=== PATIENT | female | born 1940 | race Caucasian/White ===

== ENCOUNTER 2017-09-30 08:44 | Outpatient (CLI) | payer MEDICARE, MEDICAID ==
[2017-09-30 12:55] LABS: BASOPHILS % (AUTO) 0.2 %; EOSINOPHILS # (AUTO) 0.1 10^3/uL (0.0-0.7); EOSINOPHILS % (AUTO) 2.3 %; HGB - HEMOGLOBIN 13.3 g/dL (12.0-16.0); LYMPHOCYTES # (AUTO) 2.4 10^3/uL (1.5-3.5); LYMPHOCYTES % (AUTO) 43.8 %; MEAN CORPUSCULAR HGB CONC 33.7 g/dL (32.0-36.0); MEAN CORPUSCULAR VOLUME 95.1 fL (81.0-99.0); MEAN PLATELET VOLUME 8.8 fL (7.9-10.8); MONOCYTES # (AUTO) 0.5 10^3/uL (0.0-1.0); MONOCYTES % (AUTO) 8.7 %; NEUTROPHILS # (AUTO) 2.4 10^3/uL (1.5-6.6); PLT - PLATELET COUNT 188 10^3/uL (130-450); RED BLOOD COUNT 4.15 10^6/uL (4.20-5.40); RED CELL DISTRIBUTION WIDTH 13.1 % (12.0-15.0); WHITE BLOOD COUNT 5.4 x10^3/uL (4.8-10.8)
[2017-09-30 13:24] LABS: ALBUMIN 4.4 g/dL (3.2-5.5); ALBUMIN/GLOBULIN RATIO 1.5 (1.0-2.2); ALKALINE PHOSPHATASE 43 IU/L (42-121); ALT ALANINE AMINOTRANSFERASE 29 IU/L (10-60); AST ASPARTATE AMINOTRANSFERASE 28 IU/L (10-42); BILIRUBIN,TOTAL 0.8 mg/dL (0.2-1.0); BUN - BLOOD UREA NITROGEN 16 mg/dL (6-20); CALCIUM 9.4 mg/dL (8.5-10.3); CARBON DIOXIDE - CO2 26 mmol/L (21-32); CHLORIDE 106 mmol/L (101-111); CHOL/HDL RATIO 4.9 (<4.4); CHOLESTEROL 215 mg/dL; GFR - MDRD 54 (>89); GLUCOSE 103 mg/dL (70-100); HDL CHOLESTEROL 44 mg/dL; LDL CHOLESTEROL,CALCULATED 118 mg/dL; LDL/HDL RATIO 2.7 (<4.4); SODIUM 139 mmol/L (135-145); TOTAL PROTEIN 7.4 g/dL (6.7-8.2); VLDL CHOLESTEROL 53 mg/dL
== END 2017-09-30 08:45 | disposition home or self-care (01) ==
LOC: LAB.WCP 08:44
PROVIDERS: ATTEND Family Medicine
DX: I10 Essential (primary) hypertension (principal); Z79.899 Other long term (current) drug therapy
CPT/HCPCS: 36415; 80053; 80061; 83721; 84443; 85025

== ENCOUNTER 2018-06-15 08:10 | Outpatient (CLI) | payer MEDICARE, MEDICAID ==
[2018-06-15 14:33] LABS: BASOPHILS % (AUTO) 0.2 %; EOSINOPHILS # (AUTO) 0.1 10^3/uL (0.0-0.7); EOSINOPHILS % (AUTO) 3.1 %; HGB - HEMOGLOBIN 12.7 g/dL (12.0-16.0); LYMPHOCYTES # (AUTO) 2.4 10^3/uL (1.5-3.5); MEAN CORPUSCULAR HEMOGLOBIN 34.2 pg (27.0-31.0); MEAN CORPUSCULAR HGB CONC 35.4 g/dL (32.0-36.0); MEAN CORPUSCULAR VOLUME 96.6 fL (81.0-99.0); MEAN PLATELET VOLUME 9.3 fL (7.9-10.8); MONOCYTES # (AUTO) 0.3 10^3/uL (0.0-1.0); MONOCYTES % (AUTO) 6.8 %; NEUTROPHILS # (AUTO) 1.7 10^3/uL (1.5-6.6); NEUTROPHILS % (AUTO) 36.9 %; PLT - PLATELET COUNT 168 10^3/uL (130-450); RED CELL DISTRIBUTION WIDTH 13.2 % (12.0-15.0); WHITE BLOOD COUNT 4.6 x10^3/uL (4.8-10.8)
[2018-06-15 15:00] LABS: ALBUMIN 4.3 g/dL (3.2-5.5); ALBUMIN/GLOBULIN RATIO 1.5 (1.0-2.2); ALKALINE PHOSPHATASE 43 IU/L (42-121); ALT ALANINE AMINOTRANSFERASE 24 IU/L (10-60); AST ASPARTATE AMINOTRANSFERASE 28 IU/L (10-42); BUN - BLOOD UREA NITROGEN 11 mg/dL (6-20); CALCIUM 9.4 mg/dL (8.5-10.3); CARBON DIOXIDE - CO2 29 mmol/L (21-32); CHLORIDE 103 mmol/L (101-111); CHOL/HDL RATIO 2.9 (<4.4); CHOLESTEROL 137 mg/dL; GFR - MDRD 54 (>89); GLUCOSE 101 mg/dL (70-100); HDL CHOLESTEROL 48 mg/dL; LDL CHOLESTEROL,CALCULATED 62 mg/dL; LDL/HDL RATIO 1.3 (<4.4); SODIUM 141 mmol/L (135-145); TOTAL PROTEIN 7.2 g/dL (6.7-8.2); VLDL CHOLESTEROL 27 mg/dL
== END 2018-06-15 23:59 | disposition home or self-care (01) ==
LOC: LAB.WCP 08:10
PROVIDERS: ATTEND Nurse Practitioner
DX: E88.81 Metabolic syndrome and other insulin resistance (principal); I10 Essential (primary) hypertension; Z79.899 Other long term (current) drug therapy
CPT/HCPCS: 36415; 80053; 80061; 83721; 85025

== ENCOUNTER 2018-08-25 08:13 | Outpatient (CLI) | payer MEDICARE, MEDICAID ==
[2018-08-25 12:44] LABS: ALBUMIN 4.5 g/dL (3.2-5.5); ALBUMIN/GLOBULIN RATIO 1.6 (1.0-2.2); BILIRUBIN,TOTAL 0.9 mg/dL (0.2-1.0); CALCIUM 9.8 mg/dL (8.5-10.3); TOTAL PROTEIN 7.3 g/dL (6.7-8.2)
== END 2018-08-25 23:59 | disposition home or self-care (01) ==
LOC: LAB.WCP 08:13
PROVIDERS: ATTEND Nurse Practitioner
DX: E88.81 Metabolic syndrome and other insulin resistance (principal)
CPT/HCPCS: 36415; 80053

== ENCOUNTER 2019-04-07 08:00 | Outpatient (CLI) | payer MEDICARE, MEDICAID ==
[2019-04-07 18:51] LABS: BASOPHILS % (AUTO) 0.2 %; EOSINOPHILS # (AUTO) 0.1 10^3/uL (0.0-0.7); EOSINOPHILS % (AUTO) 1.9 %; HGB - HEMOGLOBIN 12.1 g/dL (12.0-16.0); LYMPHOCYTES # (AUTO) 2.4 10^3/uL (1.5-3.5); LYMPHOCYTES % (AUTO) 49.3 %; MEAN CORPUSCULAR HEMOGLOBIN 31.3 pg (27.0-31.0); MEAN CORPUSCULAR HGB CONC 30.9 g/dL (32.0-36.0); MEAN PLATELET VOLUME 11.3 fL (7.9-10.8); MONOCYTES # (AUTO) 0.3 10^3/uL (0.0-1.0); NEUTROPHILS % (AUTO) 41.4 %; PLT - PLATELET COUNT 181 10^3/uL (130-450); RED BLOOD COUNT 3.87 10^6/uL (4.20-5.40); RED CELL DISTRIBUTION WIDTH 12.9 % (12.0-15.0); WHITE BLOOD COUNT 4.8 x10^3/uL (4.8-10.8)
[2019-04-07 19:12] LABS: HB2 TOTAL 12.7 g/dL; HEMOGLOBIN A1C 0.54 g/dL
[2019-04-07 19:18] LABS: ALBUMIN 4.3 g/dL (3.2-5.5); ALBUMIN/GLOBULIN RATIO 1.4 (1.0-2.2); ALKALINE PHOSPHATASE 34 IU/L (42-121); ALT ALANINE AMINOTRANSFERASE 21 IU/L (10-60); AST ASPARTATE AMINOTRANSFERASE 24 IU/L (10-42); BILIRUBIN,TOTAL 1.2 mg/dL (0.2-1.0); BUN - BLOOD UREA NITROGEN 18 mg/dL (6-20); CALCIUM 9.5 mg/dL (8.5-10.3); CARBON DIOXIDE - CO2 29 mmol/L (21-32); CHLORIDE 103 mmol/L (101-111); CHOL/HDL RATIO 5.1 (<4.4); CHOLESTEROL 242 mg/dL; GFR - MDRD 54 (>89); GLUCOSE 92 mg/dL (70-100); HDL CHOLESTEROL 47 mg/dL; LDL CHOLESTEROL,CALCULATED 161 mg/dL; LDL/HDL RATIO 3.4 (<4.4); SODIUM 140 mmol/L (135-145); TOTAL PROTEIN 7.3 g/dL (6.7-8.2); VLDL CHOLESTEROL 34 mg/dL
== END 2019-04-07 23:59 | disposition home or self-care (01) ==
LOC: LAB.WCP 08:00
PROVIDERS: ATTEND Family Medicine
DX: E87.6 Hypokalemia (principal); E78.00 Pure hypercholesterolemia, unspecified; E88.81 Metabolic syndrome and other insulin resistance; I10 Essential (primary) hypertension; Z79.899 Other long term (current) drug therapy
CPT/HCPCS: 36415; 80053; 80061; 83036; 83721; 85025

== ENCOUNTER 2019-06-14 10:15 | Outpatient (CLI) | payer MEDICARE, MEDICAID ==
[2019-06-14 12:37] LABS: BILIRUBIN,URINE NEGATIVE (NEGATIVE); GLUCOSE, URINE (UA) NEGATIVE (NEGATIVE); KETONES,URINE (UA) NEGATIVE (NEGATIVE); LEUKOCYTE ESTERASE, URINE NEGATIVE (NEGATIVE); NITRITE,URINE NEGATIVE (NEGATIVE); OCCULT BLOOD,URINE SMALL (NEGATIVE); PH,URINE 6.5 PH (5.0-7.5); PROTEIN,URINE 30 mg/dL (NEGATIVE); UROBILINOGEN,URINE 0.2 (NORMAL) E.U./dL (NORMAL)
[2019-06-14 13:07] LABS: CLARITY,URINE CLEAR (CLEAR)
[2019-06-14 13:08] LABS: BACTERIA,URINE Rare /HPF (None Seen); RBC,URINE 0-5 /HPF (0-5); SQUAMOUS EPITHELIAL CELL,UR RARE Squamous (<= Few); WBC CLUMPS,URINE PRESENT
[2019-06-14 13:09] LABS: MUCUS,URINE Few Strands
== END 2019-06-14 23:59 | disposition home or self-care (01) ==
LOC: LAB.WCP 10:15
PROVIDERS: ATTEND Nurse Practitioner Family
DX: R80.9 Proteinuria, unspecified (principal); R31.9 Hematuria, unspecified
CPT/HCPCS: 81001; 81003; 87086

== ENCOUNTER 2019-09-02 09:28 | Outpatient (CLI) | payer MEDICARE, MEDICAID ==
[2019-09-02 12:47] LABS: BILIRUBIN,URINE NEGATIVE (NEGATIVE); GLUCOSE, URINE (UA) NEGATIVE (NEGATIVE); KETONES,URINE (UA) NEGATIVE (NEGATIVE); LEUKOCYTE ESTERASE, URINE NEGATIVE (NEGATIVE); NITRITE,URINE NEGATIVE (NEGATIVE); OCCULT BLOOD,URINE SMALL (NEGATIVE); PROTEIN,URINE NEGATIVE (NEGATIVE); UROBILINOGEN,URINE 0.2 (NORMAL) E.U./dL (NORMAL)
[2019-09-02 12:48] LABS: BASOPHILS % (AUTO) 0.4 %; EOSINOPHILS # (AUTO) 0.1 10^3/uL (0.0-0.7); EOSINOPHILS % (AUTO) 1.8 %; HGB - HEMOGLOBIN 11.5 g/dL (12.0-16.0); LYMPHOCYTES # (AUTO) 2.3 10^3/uL (1.5-3.5); MEAN CORPUSCULAR HEMOGLOBIN 32.2 pg (27.0-31.0); MEAN CORPUSCULAR HGB CONC 32.5 g/dL (32.0-36.0); MEAN CORPUSCULAR VOLUME 99.2 fL (81.0-99.0); MEAN PLATELET VOLUME 11.2 fL (7.9-10.8); MONOCYTES # (AUTO) 0.4 10^3/uL (0.0-1.0); MONOCYTES % (AUTO) 8.1 %; NEUTROPHILS # (AUTO) 2.1 10^3/uL (1.5-6.6); NEUTROPHILS % (AUTO) 43.5 %; PLT - PLATELET COUNT 157 10^3/uL (130-450); RED BLOOD COUNT 3.57 10^6/uL (4.20-5.40); RED CELL DISTRIBUTION WIDTH 12.5 % (12.0-15.0); WHITE BLOOD COUNT 4.9 x10^3/uL (4.8-10.8)
[2019-09-02 12:49] LABS: CLARITY,URINE CLEAR (CLEAR)
[2019-09-02 12:59] LABS: HB2 TOTAL 11.4 g/dL; HEMOGLOBIN A1C 0.52 g/dL; HEMOGLOBIN A1C % 6.3 % (4.6-6.2)
[2019-09-02 13:05] LABS: BACTERIA,URINE Rare /HPF (None Seen); RBC,URINE 0-5 /HPF (0-5); SQUAMOUS EPITHELIAL CELL,UR RARE Squamous (<= Few)
[2019-09-02 13:06] LABS: ALBUMIN 4.3 g/dL (3.2-5.5); ALBUMIN/GLOBULIN RATIO 1.5 (1.0-2.2); ALKALINE PHOSPHATASE 41 IU/L (42-121); ALT ALANINE AMINOTRANSFERASE 34 IU/L (10-60); AST ASPARTATE AMINOTRANSFERASE 29 IU/L (10-42); BUN - BLOOD UREA NITROGEN 22 mg/dL (6-20); CALCIUM 8.9 mg/dL (8.5-10.3); CARBON DIOXIDE - CO2 26 mmol/L (21-32); CHLORIDE 101 mmol/L (101-111); CHOL/HDL RATIO 2.8 (<4.4); CHOLESTEROL 124 mg/dL; CREATININE 1.1 mg/dL (0.4-1.0); GFR - MDRD 48 (>89); GLUCOSE 88 mg/dL (70-100); HDL CHOLESTEROL 44 mg/dL; LDL CHOLESTEROL,CALCULATED 47 mg/dL; LDL/HDL RATIO 1.1 (<4.4); SODIUM 136 mmol/L (135-145); TOTAL PROTEIN 7.1 g/dL (6.7-8.2); VLDL CHOLESTEROL 33 mg/dL
== END 2019-09-02 23:59 | disposition home or self-care (01) ==
LOC: LAB.WCP 09:28
PROVIDERS: ATTEND Family Medicine
DX: N18.3 Chronic kidney disease, stage 3 (moderate) (principal); E78.00 Pure hypercholesterolemia, unspecified; R31.9 Hematuria, unspecified; E88.81 Metabolic syndrome and other insulin resistance
CPT/HCPCS: 36415; 80053; 80061; 81001; 83036; 83721; 85025; 87086

== ENCOUNTER 2020-08-27 07:00 | Outpatient (CLI) | payer MEDICARE, MEDICAID ==
--- NOTE | 2020-08-28 12:45 | XRAY Report ---
PROCEDURE: Tib/Fib LT INDICATIONS: L LOWER LEG PX TECHNIQUE: 2 views of the tibia and fibula were acquired. COMPARISON: None FINDINGS: Bones: No fractures or dislocations. No suspicious bony lesions. Soft tissues: No suspicious soft tissue calcifications or masses. IMPRESSION: No visualized acute fracture or dislocation. However, occult injury cannot be excluded. Recommend silvia rt interval imaging follow-up in 7-10 days as clinically indicated for additional evaluation. Reviewed by: Maria L Martin MD on 08/28/2020 12:44 PM PST Approved by: Maria L Martin MD on 08/28/2020 12:44 PM PST Station ID: [id number]
== END 2020-08-27 23:59 | disposition home or self-care (01) ==
LOC: DI.N 07:00
PROVIDERS: ATTEND Nurse Practitioner
DX: M79.662 Pain in left lower leg (principal)

== ENCOUNTER 2020-11-01 16:59 | Outpatient (CLI) | payer MEDICARE, MEDICAID ==
[2020-11-01 20:49] LABS: BASOPHILS % (AUTO) 0.4 %; EOSINOPHILS # (AUTO) 0.2 10^3/uL (0.0-0.7); EOSINOPHILS % (AUTO) 3.1 %; HCT - HEMATOCRIT 29.6 % (37.0-47.0); HGB - HEMOGLOBIN 9.8 g/dL (12.0-16.0); LYMPHOCYTES # (AUTO) 1.9 10^3/uL (1.5-3.5); MEAN CORPUSCULAR HGB CONC 33.1 g/dL (32.0-36.0); MEAN CORPUSCULAR VOLUME 99.7 fL (81.0-99.0); MEAN PLATELET VOLUME 11.3 fL (7.9-10.8); MONOCYTES # (AUTO) 0.4 10^3/uL (0.0-1.0); MONOCYTES % (AUTO) 7.2 %; NEUTROPHILS # (AUTO) 2.4 10^3/uL (1.5-6.6); NEUTROPHILS % (AUTO) 49.1 %; PLT - PLATELET COUNT 188 10^3/uL (130-450); RED BLOOD COUNT 2.97 10^6/uL (4.20-5.40); RED CELL DISTRIBUTION WIDTH 12.6 % (12.0-15.0); WHITE BLOOD COUNT 4.8 x10^3/uL (4.8-10.8)
[2020-11-01 20:59] LABS: ESTIMATED AVERAGE GLUCOSE 120 mg/dL (70-100); HEMOGLOBIN A1c% 5.8 % (4.27-6.07)
[2020-11-01 21:01] LABS: ALBUMIN 4.5 g/dL (3.2-5.5); ALBUMIN/GLOBULIN RATIO 1.5 (1.0-2.2); ALKALINE PHOSPHATASE 47 IU/L (42-121); ALT ALANINE AMINOTRANSFERASE 23 IU/L (10-60); AST ASPARTATE AMINOTRANSFERASE 24 IU/L (10-42); BILIRUBIN,TOTAL 0.7 mg/dL (0.2-1.0); BUN - BLOOD UREA NITROGEN 39 mg/dL (6-20); CALCIUM 10.2 mg/dL (8.5-10.3); CARBON DIOXIDE - CO2 26 mmol/L (21-32); CHLORIDE 100 mmol/L (101-111); CHOL/HDL RATIO 4.3 (<4.4); CHOLESTEROL 186 mg/dL; CREATININE 1.7 mg/dL (0.4-1.0); GFR - MDRD 29 (>89); GLUCOSE 111 mg/dL (70-100); HDL CHOLESTEROL 43 mg/dL; LDL CHOLESTEROL,CALCULATED 90 mg/dL; LDL/HDL RATIO 2.1 (<4.4); SODIUM 139 mmol/L (135-145); TOTAL PROTEIN 7.5 g/dL (6.7-8.2); TRIGLYCERIDES 267 mg/dL; VLDL CHOLESTEROL 53 mg/dL
== END 2020-11-01 17:00 | disposition home or self-care (01) ==
LOC: LAB.N 16:59
PROVIDERS: ATTEND Family Medicine
DX: N18.30 Chronic kidney disease, stage 3 unspecified (principal); E78.00 Pure hypercholesterolemia, unspecified; E88.81 Metabolic syndrome and other insulin resistance
CPT/HCPCS: 36415; 80053; 80061; 83036; 83721; 85025

== ENCOUNTER 2020-11-07 08:00 | Outpatient (CLI) | payer MEDICARE, MEDICAID ==
[2020-11-07 13:36] LABS: FECAL OCCULT BLOOD (FIT) NEGATIVE (NEGATIVE)
== END 2020-11-07 23:59 | disposition home or self-care (01) ==
LOC: LAB.WCP 08:00
PROVIDERS: ATTEND Family Medicine
DX: D64.9 Anemia, unspecified (principal)
CPT/HCPCS: 82274

== ENCOUNTER 2020-12-28 08:18 | Outpatient (CLI) | payer MEDICARE, MEDICAID ==
--- NOTE | 2020-12-28 15:50 | DEXA Report ---
PROCEDURE: Dexa Spine and/or Hip INDICATIONS: POSTMENOPAUSAL TECHNIQUE: Dual energy x-ray absorptiometry (DXA) was performed on a [email or web address] System. Regions measur ed are the AP Spine, femoral neck, and if needed forearm. COMPARISON: None. FINDINGS: Lumbar Spine: Bone Mineral Density 0.897 g/cm/cm,T score -2.4, severe osteopenia/borderline osteoporosis Left Hip: Bone Mineral Density 0.758 g/cm/cm,T score -2.0, moderate osteopenia Left Femoral Neck: Bone Mineral Density 0.730 g/cm/cm, T score -2.2, moderate to severe osteopenia (T score greater or equal to -1.0: NORMAL) (T score from -1.1 to -2.4: OSTEOPENIA) (T score less than or equal to -2.5 to: OSTEOPOROSIS) Impression: Prominent osteopenia with borderline osteoporosis most notable in the lumbar spine. Patients with diagnosis of osteoporosis or osteopenia should have regular bone mineral density assess ment. For those eligible for Medicare, routine testing is allowed once every 2 years. Testing frequ ency can be increased for patients who have rapidly progressing disease or for those who are receivin g medical therapy to restore bone mass. Reviewed by: Maria L Martin MD on 12/28/2020 3:48 PM PDT Approved by: Maria L Martin MD on 12/28/2020 3:48 PM PDT Station ID: [id number]
== END 2020-12-28 08:19 | disposition home or self-care (01) ==
LOC: DI 08:18
PROVIDERS: ATTEND Family Medicine
DX: M85.89 Other specified disorders of bone density and structure, multiple sites (principal); Z78.0 Asymptomatic menopausal state

== ENCOUNTER 2021-02-07 10:44 | Outpatient (CLI) | payer MEDICARE, MEDICAID ==
[2021-02-07 18:14] LABS: BILIRUBIN,URINE NEGATIVE (NEGATIVE); GLUCOSE, URINE (UA) NEGATIVE (NEGATIVE); KETONES,URINE (UA) NEGATIVE (NEGATIVE); LEUKOCYTE ESTERASE, URINE NEGATIVE (NEGATIVE); NITRITE,URINE NEGATIVE (NEGATIVE); OCCULT BLOOD,URINE TRACE-INTA (NEGATIVE); PH,URINE 6.5 PH (5.0-7.5); PROTEIN,URINE NEGATIVE (NEGATIVE); UROBILINOGEN,URINE 0.2 (NORMAL) E.U./dL (NORMAL)
[2021-02-07 18:20] LABS: CLARITY,URINE CLEAR (CLEAR)
[2021-02-07 18:25] LABS: THYROID STIMULATING HORMONE 3.02 uIU/mL (0.34-5.60)
[2021-02-07 18:31] LABS: ALBUMIN 4.3 g/dL (3.2-5.5); ALBUMIN/GLOBULIN RATIO 1.3 (1.0-2.2); CALCIUM 9.9 mg/dL (8.5-10.3); CREATININE 1.5 mg/dL (0.4-1.0); FERRITIN 364.5 ng/mL (11.0-306.8); POTASSIUM 3.6 mmol/L (3.5-5.0); TOTAL PROTEIN 7.5 g/dL (6.7-8.2)
[2021-02-07 18:58] LABS: RBC,URINE 0-5 /HPF (0-5); WBC,URINE 0-3 /HPF (0-5)
[2021-02-07 18:59] LABS: BACTERIA,URINE Rare /HPF (None Seen); SQUAMOUS EPITHELIAL CELL,UR RARE Squamous (<= Few)
== END 2021-02-07 23:59 | disposition home or self-care (01) ==
LOC: LAB.WCP 10:44
PROVIDERS: ATTEND Family Medicine
DX: N18.30 Chronic kidney disease, stage 3 unspecified (principal); E88.81 Metabolic syndrome and other insulin resistance; N28.9 Disorder of kidney and ureter, unspecified; D64.9 Anemia, unspecified
CPT/HCPCS: 36415; 80053; 81001; 82607; 82728; 83540; 84443; 84466

== ENCOUNTER 2021-02-18 16:34 | Outpatient (CLI) | payer MEDICARE, MEDICAID ==
[2021-02-18 18:21] LABS: BASOPHILS % (AUTO) 0.4 %; EOSINOPHILS # (AUTO) 0.3 10^3/uL (0.0-0.7); EOSINOPHILS % (AUTO) 5.8 %; HCT - HEMATOCRIT 32.8 % (37.0-47.0); HGB - HEMOGLOBIN 10.6 g/dL (12.0-16.0); LYMPHOCYTES # (AUTO) 2.2 10^3/uL (1.5-3.5); MEAN CORPUSCULAR HEMOGLOBIN 32.2 pg (27.0-31.0); MEAN CORPUSCULAR HGB CONC 32.3 g/dL (32.0-36.0); MEAN CORPUSCULAR VOLUME 99.7 fL (81.0-99.0); MEAN PLATELET VOLUME 11.4 fL (7.9-10.8); MONOCYTES # (AUTO) 0.5 10^3/uL (0.0-1.0); MONOCYTES % (AUTO) 8.6 %; NEUTROPHILS # (AUTO) 2.3 10^3/uL (1.5-6.6); PLT - PLATELET COUNT 148 10^3/uL (130-450); RED BLOOD COUNT 3.29 10^6/uL (4.20-5.40); RED CELL DISTRIBUTION WIDTH 12.8 % (12.0-15.0); WHITE BLOOD COUNT 5.3 x10^3/uL (4.8-10.8)
== END 2021-02-18 16:35 | disposition home or self-care (01) ==
LOC: LAB.N 16:34
PROVIDERS: ATTEND Family Medicine
DX: D64.9 Anemia, unspecified (principal)
CPT/HCPCS: 36415; 85025

== ENCOUNTER 2021-05-31 21:18 | Emergency (ER) | payer MEDICARE, MEDICAID ==
[2021-05-31 21:54] LABS: BASOPHILS % (AUTO) 0.2 %; EOSINOPHILS % (AUTO) 0.9 %; HCT - HEMATOCRIT 36.5 % (37.0-47.0); LYMPHOCYTES # (AUTO) 1.8 10^3/uL (1.5-3.5); MEAN CORPUSCULAR HEMOGLOBIN 31.9 pg (27.0-31.0); MEAN CORPUSCULAR HGB CONC 32.9 g/dL (32.0-36.0); MEAN CORPUSCULAR VOLUME 97.1 fL (81.0-99.0); MEAN PLATELET VOLUME 9.9 fL (7.9-10.8); MONOCYTES # (AUTO) 0.3 10^3/uL (0.0-1.0); MONOCYTES % (AUTO) 6.5 %; NEUTROPHILS # (AUTO) 2.2 10^3/uL (1.5-6.6); NEUTROPHILS % (AUTO) 50.2 %; PLT - PLATELET COUNT 163 10^3/uL (130-450); RED BLOOD COUNT 3.76 10^6/uL (4.20-5.40); RED CELL DISTRIBUTION WIDTH 12.1 % (12.0-15.0); WHITE BLOOD COUNT 4.3 x10^3/uL (4.8-10.8)
[2021-05-31 22:09] LABS: ALBUMIN 4.6 g/dL (3.2-5.5); ALBUMIN/GLOBULIN RATIO 1.6 (1.0-2.2); BILIRUBIN,TOTAL 0.8 mg/dL (0.2-1.0); CALCIUM 9.7 mg/dL (8.5-10.3); CREATININE 1.3 mg/dL (0.4-1.0); POTASSIUM 3.5 mmol/L (3.5-5.0); TOTAL PROTEIN 7.5 g/dL (6.7-8.2)
--- NOTE | 2021-05-31 22:59 | ED Physician Documentation ---
PD HPI CHEST PAIN - Stated complaint Stated Complaint: HOT TO THE TOUCH - Chief complaint Chief Complaint: Cardiac - History obtained from History obtained from: Patient - History of Present Illness Timing - onset: Today Timing - onset during: Rest Timing - duration: Days (08/04) Timing - details: Abrupt onset Quality: Pressure (she states she had some mild pressure feeling in chest and anterior forehead this moring and took BP and it was elevated. It has continued elevated through the day. Did not have any further chest discomfort.) Location: Substernal Worsened by: No: Exertion, Inspiration, Movement Associated symptoms: General Weakness. No: Shortness of air, Nausea, Feeling faint / dizzy Similar symptoms before: Diagnosis (has had HTN in the past and is on Metoprolol 25 mg once daily. Had been twice daily but decreased as was having improved BP and was lightheaded at times. Has been once daily for couple of years.) Recently seen: Not recently seen Review of Systems Constitutional: denies: Fever, Chills Nose: denies: Rhinorrhea / runny nose, Congestion Throat: denies: Sore throat Cardiac: denies: Palpitations, Pedal edema, Calf pain Respiratory: denies: Cough GI: denies: Abdominal Pain, Nausea, Vomiting, Diarrhea, Bloody / black stool Skin: denies: Rash, Lesions Musculoskeletal: denies: Extremity swelling Neurologic: denies: Generalized weakness, Near syncope, Confused, Altered mental status, Headache PD PAST MEDICAL HISTORY - Past Medical History Past Medical History: No Cardiovascular: Hypertension Respiratory: None Neuro: None Endocrine/Autoimmune: None - Present Medications Home Medications: Ambulatory Orders Medication Instructions Recorded Confirmed Metoprolol Succinate [[place] 25 mg PO DAILY 05/31/21 05/31/21 Danika] - Allergies Allergies/Adverse Reactions: Allergies Allergy/AdvReac Type Severity Reaction Status Date / Time No Known Drug Allergies Allergy Verified 05/31/21 21:26 - Social History Does the pt smoke?: No Smoking Status: Never smoker Does the pt drink ETOH?: No Does the pt have substance abuse?: No - Immunizations Immunizations are current?: Yes - POLST Patient has POLST: No PD ED PE NORMAL - Vitals Vital signs reviewed: Yes - General General: Alert and oriented X 3, No acute distress, Well developed/nourished - HEENT HEENT: Pharynx benign - Neck Neck: Supple, no meningeal sign, No adenopathy - Cardiac Cardiac: RRR, No murmur - Respiratory Respiratory: Clear bilaterally - Abdomen Abdomen: Soft, Non tender - Back Back: No CVA TTP - Derm Derm: Normal color, Warm and dry - Extremities Extremities: No tenderness to palpate, Normal ROM s pain, No edema, No calf tenderness / cord - Neuro Neuro: Alert and oriented X 3, No motor deficit, Normal speech Results - Vitals Vitals: Oxygen O2 Source Room air - EKG (time done) 21:43 Rate: Rate (enter#) (83) Rhythm: NSR [place]: Normal Intervals: Normal NV QRS: Normal Ischemia: Normal ST segments. No: ST elevation c/w ischemia, ST depression - Labs Labs: Laboratory Tests 05/31/21 05/31/21 05/31/21 21:45 21:45 21:45 WBC 4.3 L RBC 3.76 L Hgb 12.0 Hct 36.5 L MCV 97.1 MCH 31.9 H MCHC 32.9 RDW 12.1 Plt Count 163 MPV 9.9 Neut # (Auto) 2.2 Lymph # (Auto) 1.8 [place] # (Auto) 0.3 Eos # (Auto) 0.0 Baso # (Auto) 0.0 Absolute Nucleated RBC 0.00 Nucleated RBC % 0.0 Sodium 140 Potassium 3.5 Chloride 106 Carbon Dioxide 27 Anion Gap 7.0 BUN 22 H Creatinine 1.3 H Estimated GFR (MDRD) 39 L Glucose 113 H Calcium 9.7 Total Bilirubin 0.8 AST 22 ALT 17 Alkaline Phosphatase 43 Troponin I High Sens 5.6 Total Protein 7.5 Albumin 4.6 Globulin 2.9 Albumin/Globulin Ratio 1.6 Lipase 45 PD MEDICAL DECISION MAKING - ED course Complexity details: considered differential (discussed with patient the general guideline in EM not to try to have BP decrease promptly due to risk of CVA/fainting/etc. Will aim for BP improvement over the next few days. Is down to 168/80 without treatment in ED. No symptoms while here. ), d/w patient Departure - Departure Disposition: 01 Home, Self Care Clinical Impression: High blood pressure Condition: Stable Record reviewed to determine appropriate education?: Yes Instructions: ED HTN Established Comments: I would increase your metoprolol 25 mg daily up to a new regimen of metoprolol 25 mg twice daily (morning and evening). Stay well-hydrated and low-salt diet. Check your blood pressure once or twice daily over the next several days to week and record them. Contact your primary care Thursday for a follow-up appointment for later in the week. Your primary care can look at the blood pressure numbers and trend and decide on any further adjustments in your medicine. Discharge Date/Time: 05/31/21 23:05
[2021-05-31 23:03] VITALS: BP 168/80
== END 2021-05-31 23:05 | disposition home or self-care (01) ==
LOC: ED 21:18
DX: I10 Essential (primary) hypertension (principal)
CPT/HCPCS: 36415; 80053; 83690; 84484; 85025; 93005; 99283; 99284

== ENCOUNTER 2021-07-24 11:42 | Outpatient (CLI) | payer MEDICARE, MEDICAID ==
[2021-07-24 17:55] LABS: ALBUMIN 4.2 g/dL (3.2-5.5); ALBUMIN/GLOBULIN RATIO 1.4 (1.0-2.2); BILIRUBIN,TOTAL 0.7 mg/dL (0.2-1.0); CALCIUM 9.4 mg/dL (8.5-10.3); CREATININE 1.3 mg/dL (0.4-1.0); POTASSIUM 3.4 mmol/L (3.5-5.0); TOTAL PROTEIN 7.2 g/dL (6.7-8.2)
[2021-07-24 17:56] LABS: BASOPHILS % (AUTO) 0.2 %; EOSINOPHILS # (AUTO) 0.1 10^3/uL (0.0-0.7); EOSINOPHILS % (AUTO) 2.3 %; HCT - HEMATOCRIT 34.8 % (37.0-47.0); HGB - HEMOGLOBIN 11.3 g/dL (12.0-16.0); LYMPHOCYTES # (AUTO) 1.8 10^3/uL (1.5-3.5); LYMPHOCYTES % (AUTO) 38.9 %; MEAN CORPUSCULAR HEMOGLOBIN 31.9 pg (27.0-31.0); MEAN CORPUSCULAR HGB CONC 32.5 g/dL (32.0-36.0); MEAN CORPUSCULAR VOLUME 98.3 fL (81.0-99.0); MONOCYTES # (AUTO) 0.4 10^3/uL (0.0-1.0); MONOCYTES % (AUTO) 7.4 %; NEUTROPHILS # (AUTO) 2.4 10^3/uL (1.5-6.6); PLT - PLATELET COUNT 163 10^3/uL (130-450); RED BLOOD COUNT 3.54 10^6/uL (4.20-5.40); RED CELL DISTRIBUTION WIDTH 12.7 % (12.0-15.0); WHITE BLOOD COUNT 4.7 x10^3/uL (4.8-10.8)
== END 2021-07-24 23:59 | disposition home or self-care (01) ==
LOC: LAB.WCP 11:42
PROVIDERS: ATTEND Family Medicine
DX: N18.32 Chronic kidney disease, stage 3b (principal)
CPT/HCPCS: 36415; 80053; 85025

== ENCOUNTER 2022-06-21 09:48 | Outpatient (CLI) | payer MEDICARE, MEDICAID ==
[2022-06-21 19:03] LABS: BASOPHILS % (AUTO) 0.5 %; EOSINOPHILS # (AUTO) 0.1 10^3/uL (0.0-0.7); EOSINOPHILS % (AUTO) 2.9 %; HCT - HEMATOCRIT 41.6 % (37.0-47.0); HGB - HEMOGLOBIN 13.5 g/dL (12.0-16.0); LYMPHOCYTES # (AUTO) 1.9 10^3/uL (1.5-3.5); LYMPHOCYTES % (AUTO) 46.5 %; MEAN CORPUSCULAR HEMOGLOBIN 33.8 pg (27.0-31.0); MEAN CORPUSCULAR HGB CONC 32.5 g/dL (32.0-36.0); MEAN CORPUSCULAR VOLUME 104.3 fL (81.0-99.0); MEAN PLATELET VOLUME 13.7 fL (7.9-10.8); MONOCYTES # (AUTO) 0.4 10^3/uL (0.0-1.0); MONOCYTES % (AUTO) 9.7 %; NEUTROPHILS # (AUTO) 1.7 10^3/uL (1.5-6.6); NEUTROPHILS % (AUTO) 40.2 %; RED BLOOD COUNT 3.99 10^6/uL (4.20-5.40); WHITE BLOOD COUNT 4.1 x10^3/uL (4.8-10.8)
[2022-06-21 19:17] LABS: SLIDE REVIEW? Indicated
[2022-06-21 19:33] LABS: % IRON SATURATION 70 % (20-50); BILIRUBIN,URINE NEGATIVE (NEGATIVE); CHOL/HDL RATIO 4.1 (<4.4); CHOLESTEROL 222 mg/dL; GLUCOSE, URINE (UA) NEGATIVE (NEGATIVE); HDL CHOLESTEROL 54 mg/dL; IRON 219 ug/dL (28-170); KETONES,URINE (UA) NEGATIVE (NEGATIVE); LDL CHOLESTEROL,CALCULATED 133 mg/dL; LDL/HDL RATIO 2.5 (<4.4); LEUKOCYTE ESTERASE, URINE NEGATIVE (NEGATIVE); NITRITE,URINE NEGATIVE (NEGATIVE); OCCULT BLOOD,URINE NEGATIVE (NEGATIVE); PROTEIN,URINE NEGATIVE (NEGATIVE); TOTAL IRON BINDING CAPACITY 314 ug/dL (250-450); TRANSFERRIN 224 mg/dL (192-382); TRIGLYCERIDES 173 mg/dL; UROBILINOGEN,URINE 0.2 (NORMAL) E.U./dL (NORMAL); VLDL CHOLESTEROL 35 mg/dL
[2022-06-21 19:35] LABS: CLARITY,URINE CLEAR (CLEAR)
[2022-06-21 19:40] LABS: PLATELET MORPHOLOGY PLATELET CLUMPING (NORMAL); RBC MORPHOLOGY (MULTIPLE) NORMAL APPEARANCE (NORMAL)
[2022-06-21 19:44] LABS: THYROID STIMULATING HORMONE 2.24 uIU/mL (0.34-5.60)
[2022-06-21 19:46] LABS: RBC,URINE 0-5 /HPF (0-5); WBC,URINE 0-3 /HPF (0-5)
[2022-06-21 19:47] LABS: BACTERIA,URINE None Seen /HPF (None Seen); CRYSTALS,URINE >50 Calcium Oxalate /LPF; SQUAMOUS EPITHELIAL CELL,UR NONE SEEN (<= Few)
== END 2022-06-21 09:49 | disposition home or self-care (01) ==
LOC: LAB.N 09:48
PROVIDERS: ATTEND Nurse Practitioner
DX: R31.9 Hematuria, unspecified (principal); R53.83 Other fatigue; E78.00 Pure hypercholesterolemia, unspecified; D64.9 Anemia, unspecified
CPT/HCPCS: 36415; 80061; 81001; 82607; 82728; 83540; 83721; 84443; 84466; 85025

== ENCOUNTER 2022-07-18 08:38 | Outpatient (CLI) | payer MEDICARE, MEDICAID | END 2022-07-18 08:39 | disposition home or self-care (01) | LOC: LAB.N 08:38 | PROVIDERS: ATTEND Nurse Practitioner | DX: R79.89 Other specified abnormal findings of blood chemistry (principal) | CPT/HCPCS: 36415; 82728 ==

== ENCOUNTER 2022-11-12 08:00 | Outpatient (CLI) | payer MEDICARE, MEDICAID ==
[2022-11-12 17:09] LABS: ALBUMIN 3.2 g/dL (3.2-5.5); ALBUMIN/GLOBULIN RATIO 0.8 (1.0-2.2); BILIRUBIN,TOTAL 0.7 mg/dL (0.2-1.0); CALCIUM 8.7 mg/dL (8.5-10.3); CREATININE 1.1 mg/dL (0.4-1.0); POTASSIUM 3.3 mmol/L (3.5-5.0); TOTAL PROTEIN 7.2 g/dL (6.7-8.2)
== END 2022-11-12 23:59 | disposition home or self-care (01) ==
LOC: LAB 08:00
PROVIDERS: ATTEND Internal Medicine
DX: R79.89 Other specified abnormal findings of blood chemistry (principal)
CPT/HCPCS: 36415; 80053

== ENCOUNTER 2023-03-28 15:05 | Emergency (ER) | payer MEDICARE, MEDICAID ==
--- NOTE | 2023-03-28 17:35 | ED Physician Documentation ---
PD HPI HEADACHE - Stated complaint Stated Complaint: DIZZINESS,HIGH BLOOD PRESSURE - Chief complaint Chief Complaint: Cardiac - History obtained from History obtained from: Patient - History of Present Illness Timing - onset: Today, Yesterday Timing - details: Gradual onset (The patient has a feeling of lightheadedness. They noted her blood pressure to be elevated at home. They had been on a trip with the family and were away in [place] for 4 days during which time the patient did not take her blood pressure medicine. Resumed the Losartan 50 mg on return.), Waxing and waning Location: Front, Global, Other (mild headache/pressure feeling. No vertigo nor ataxia.) Quality: Throbbing Associated symptoms: No: Fever, Stiff neck, Nausea Contributing factors: Hypertension (Has had hypertension on losartan 50 mg. Increased dose to 100 mg a month ago. Seen at walk-in with still elevated blood pressure and added metoprolol 25 mg. The patient's daughter states however she just found out the patient has not started either of those medicines/doses.). No: Recent illness Similar symptoms before: Diagnosis (with elevated BP.) Recently seen: Clinic (Seen at walk-in clinic about a month ago for elevated blood pressure with medication dose changes which the patient has not instituted as yet.) Review of Systems Constitutional: reports: Other (The patient's daughter and family noted a prominent vein on her right buddhist but no tenderness in the area. They are concerned of this related to her high blood pressure.). denies: Fever Eyes: denies: Loss of vision, Decreased vision Nose: denies: Rhinorrhea / runny nose, Congestion Throat: denies: Sore throat Cardiac: denies: Chest pain / pressure, Palpitations Respiratory: denies: Cough GI: denies: Abdominal Pain Musculoskeletal: denies: Extremity swelling Neurologic: denies: Focal weakness, Numbness, Near syncope PD PAST MEDICAL HISTORY - Past Medical History Cardiovascular: Hypertension Respiratory: None Neuro: None Endocrine/Autoimmune: None - Present Medications Home Medications: Ambulatory Orders Medication Instructions Recorded Confirmed Losartan Potassium 100 mg PO DAILY 03/28/23 03/28/23 Metoprolol Succinate [Toprol Xl] 25 mg PO DAILY 03/28/23 03/28/23 - Allergies Allergies/Adverse Reactions: Allergies Allergy/AdvReac Type Severity Reaction Status Date / Time No Known Drug Allergies Allergy Verified 03/28/23 15:09 - Social History Does the pt smoke?: No Smoking Status: Never smoker Does the pt drink ETOH?: No Does the pt have substance abuse?: No - Immunizations Immunizations are current?: Yes - POLST Patient has POLST: No PD ED PE NORMAL - Vitals Vital signs reviewed: Yes - General General: Alert and oriented X 3, No acute distress, Well developed/nourished - HEENT HEENT: PERRL, EOMI, Other (temples not tender. ) - Neck Neck: Supple, no meningeal sign, No adenopathy - Cardiac Cardiac: RRR, No murmur - Respiratory Respiratory: Clear bilaterally - Abdomen Abdomen: Soft, Non tender - Derm Derm: Normal color, Warm and dry - Neuro Neuro: Alert and oriented X 3, siebel administrator 2-12 intact, No motor deficit, No sensory deficit, Normal speech, Other Eye Opening: Spontaneous Motor: Obeys Commands Verbal: Oriented GCS Score: 15 - Psych Psych: Normal mood, Normal affect Results - Vitals Vitals: Oxygen O2 Source Room air - Labs Labs: Laboratory Tests 03/28/23 03/28/23 17:55 17:55 WBC 2.7 L RBC 3.84 L Hgb 12.9 Hct 39.9 MCV 103.9 H MCH 33.6 H MCHC 32.3 RDW 12.9 Plt Count 66 L MPV 12.0 H Neut # (Auto) Not Reportable Lymph # (Auto) Not Reportable [place] # (Auto) Not Reportable Eos # (Auto) Not Reportable Baso # (Auto) Not Reportable Absolute Nucleated RBC Not Reportable Total Counted 100 Band Neuts % (Manual) 0 Abnorm Lymph % (Manual) 0 Nucleated RBC % Not Reportable Neutrophils # (Manual) 1.4 L Lymphocytes # (Manual) 1.1 L Monocytes # (Manual) 0.2 Eosinophils # (Manual) 0.0 Basophils # (Manual) 0.0 Differential Comment MANUAL DIFFERENTIAL Platelet Estimate DECREASED (<130,000) Platelet Morphology NORMAL APPEARANCE RBC Morph Micro Appear 2+ MACROCYTOSIS Sodium 132 L Potassium 3.6 Chloride 99 L Carbon Dioxide 26 Anion Gap 7.0 BUN 20 Creatinine 1.3 Estimated GFR (MDRD) 39 L Glucose 121 H Calcium 10.1 Magnesium 1.9 Total Bilirubin 0.8 AST 95 H ALT 86 H Alkaline Phosphatase 112 C-Reactive Protein 0.5 Total Protein 9.0 H Albumin 4.1 Globulin 4.9 H Albumin/Globulin Ratio 0.8 L Lipase 58 PD Medical Decision Making - ED course Complexity details: considered differential (elevataed blood pressure, but not too high. Symptoms were lightheaded, without vertigo, nausea, nor focal symptoms. Does not sound cerebrovascular per se, but more cardiovascular.), d/w patient Departure - Departure Disposition: 01 Home, Self Care Clinical Impression: Elevated blood pressure reading, Light-headed feeling Condition: Stable Record reviewed to determine appropriate education?: Yes Comments: Continue with the losartan 50 mg daily and initially add in the metoprolol 25 mg daily. These can be taken together at the same time of day. See how your blood pressure is over the next week. If you are not having any ill side effects from the combination and your blood pressure still little elevated, then you can increase the losartan from 50 to 100 mg as previously suggested. See how you do with that as well. Regular hydration. Low-salt diet. Your white count is low as is normal for you. Hemoglobin is good. Your basic chemistry panel does not show any obvious acute abnormalities. Forms: PCP List Discharge Date/Time: 03/28/23 18:44
[2023-03-28 17:54] VITALS: O2SAT 100
[2023-03-28 18:01] LABS: BASOPHILS % (AUTO) 0.4 %; EOSINOPHILS % (AUTO) 1.8 %; HCT - HEMATOCRIT 39.9 % (37.0-47.0); HGB - HEMOGLOBIN 12.9 g/dL (12.0-16.0); LYMPHOCYTES % (AUTO) 38.8 %; MEAN CORPUSCULAR HEMOGLOBIN 33.6 pg (27.0-31.0); MEAN CORPUSCULAR HGB CONC 32.3 g/dL (32.0-36.0); MEAN CORPUSCULAR VOLUME 103.9 fL (81.0-99.0); MONOCYTES % (AUTO) 6.2 %; NEUTROPHILS % (AUTO) 52.4 %; PLT - PLATELET COUNT 66 10^3/uL (130-450); RED BLOOD COUNT 3.84 10^6/uL (4.20-5.40); RED CELL DISTRIBUTION WIDTH 12.9 % (12.0-15.0); WHITE BLOOD COUNT 2.7 x10^3/uL (4.8-10.8)
[2023-03-28 18:05] LABS: ABNORMAL LYMPHS % (MANUAL) 0 %; BAND NEUTROPHILS % (MANUAL) 0 %
[2023-03-28 18:16] LABS: ALBUMIN 4.1 g/dL (3.2-5.5); ALBUMIN/GLOBULIN RATIO 0.8 (1.0-2.2); BILIRUBIN,TOTAL 0.8 mg/dL (0.2-1.0); CALCIUM 10.1 mg/dL (8.5-10.3); CREATININE 1.3 mg/dL (0.6-1.3); CRP - C-REACTIVE PROTEIN 0.5 mg/dL (<0.5); MAGNESIUM 1.9 mg/dL (1.7-2.3); POTASSIUM 3.6 mmol/L (3.5-4.5)
[2023-03-28 18:38] VITALS: BP 184/82
[2023-03-28 18:59] LABS: DIFFERENTIAL COMMENT MANUAL DIFFERENTIAL; LYMPHOCYTES # (MANUAL) 1.1 10^3/uL (1.5-3.5); LYMPHOCYTES % (MANUAL) 39 %; MONOCYTES # (MANUAL) 0.2 10^3/uL (0.0-1.0); NEUTROPHILS # (MANUAL) 1.4 10^3/uL (1.5-6.6); PLATELET ESTIMATE, MANUAL DECREASED (<130,000) (NORMAL); PLATELET MORPHOLOGY NORMAL APPEARANCE (NORMAL)
== END 2023-03-28 18:44 | disposition home or self-care (01) ==
LOC: ED 15:05
DX: I10 Essential (primary) hypertension (principal); T46.5X6A Underdosing of other antihypertensive drugs, initial encounter
CPT/HCPCS: 36415; 80053; 83690; 83735; 85025; 86140; 99283

== ENCOUNTER 2023-10-03 12:27 | Outpatient (CLI) | payer MEDICARE, MEDICAID ==
--- NOTE | 2023-10-03 15:15 | XRAY Report ---
PROCEDURE: Chest 2V INDICATIONS: COUGH TECHNIQUE: 2 views of the chest were acquired. COMPARISON: None. FINDINGS: Surgical changes and devices: None. Lungs and pleura: No pleural effusions or pneumothorax. Lungs are clear. Mediastinum: Mediastinal contours appear normal. Heart size is normal. Bones and chest wall: No suspicious bony lesions. Overlying soft tissues appear unremarkable. IMPRESSION: No acute cardiopulmonary process. No focal consolidation. Reviewed by: Bryan Camacho MD on 10/03/2023 3:14 PM [facility] Approved by: Bryan Camacho MD on 10/03/2023 3:14 PM [facility] Station ID: [id number]
== END 2023-10-03 12:28 | disposition home or self-care (01) ==
LOC: DI 12:27
PROVIDERS: ATTEND Family Medicine
DX: R05.9 Cough, unspecified (principal)

== ENCOUNTER 2023-10-14 16:31 | Outpatient (CLI) | payer MEDICARE, MEDICAID ==
[2023-10-14 20:23] LABS: BASOPHILS % (AUTO) 0.5 %; EOSINOPHILS # (AUTO) 0.1 10^3/uL (0.0-0.7); EOSINOPHILS % (AUTO) 1.7 %; HCT - HEMATOCRIT 32.5 % (37.0-47.0); HGB - HEMOGLOBIN 11.1 g/dL (12.0-16.0); LYMPHOCYTES # (AUTO) 1.5 10^3/uL (1.5-3.5); LYMPHOCYTES % (AUTO) 34.7 %; MEAN CORPUSCULAR HEMOGLOBIN 33.9 pg (27.0-31.0); MEAN CORPUSCULAR HGB CONC 34.2 g/dL (32.0-36.0); MEAN CORPUSCULAR VOLUME 99.4 fL (81.0-99.0); MEAN PLATELET VOLUME 12.7 fL (7.9-10.8); MONOCYTES # (AUTO) 0.4 10^3/uL (0.0-1.0); MONOCYTES % (AUTO) 8.3 %; NEUTROPHILS # (AUTO) 2.3 10^3/uL (1.5-6.6); NEUTROPHILS % (AUTO) 54.6 %; PLT - PLATELET COUNT 83 10^3/uL (130-450); RED BLOOD COUNT 3.27 10^6/uL (4.20-5.40); WHITE BLOOD COUNT 4.2 x10^3/uL (4.8-10.8)
[2023-10-14 21:13] LABS: POTASSIUM 2.8 mmol/L (3.5-4.5)
[2023-10-14 21:26] LABS: FERRITIN 673.1 ng/mL (11.0-306.8)
[2023-10-14 22:18] LABS: ALBUMIN 3.4 g/dL (3.2-5.5); ALBUMIN/GLOBULIN RATIO 0.7 (1.0-2.2); CALCIUM 9.7 mg/dL (8.5-10.3); CREATININE 0.9 mg/dL (0.6-1.3); TOTAL PROTEIN 8.2 g/dL (6.4-8.9)
[2023-10-14 23:27] LABS: ESTIMATED AVERAGE GLUCOSE 103 mg/dL (70-100); HEMOGLOBIN A1c% 5.2 % (4.27-6.07)
== END 2023-10-14 16:32 | disposition home or self-care (01) ==
LOC: LAB.N 16:31
PROVIDERS: ATTEND Nurse Practitioner
DX: M79.10 Myalgia, unspecified site (principal); R73.03 Prediabetes; E83.119 Hemochromatosis, unspecified; R53.83 Other fatigue; G62.9 Polyneuropathy, unspecified
CPT/HCPCS: 36415; 80053; 82550; 82607; 82728; 83036; 83540; 84466; 85025

== ENCOUNTER 2023-10-15 00:13 | Emergency (ER) | payer MEDICARE, MEDICAID ==
--- NOTE | 2023-10-15 00:49 | ED Physician Documentation ---
History of Present Illness - Stated complaint Stated Complaint: ABNORMAL LABS - Chief complaint Chief Complaint: General - History obtained from History obtained from: Patient - Additonal information Additional information: 83yF sent in from clinic for low potassium. She is on potassium sparing diuretic and has had downtrending potassium. reports intermittent tingling in toes. otherwise asymptomatic. PD PAST MEDICAL HISTORY - Past Medical History Past Medical History: Yes Cardiovascular: Hypertension Respiratory: None Neuro: None Endocrine/Autoimmune: None - Past Surgical History Past Surgical History: No - Present Medications Home Medications: Ambulatory Orders Medication Instructions Recorded Confirmed Losartan Potassium 100 mg PO DAILY 03/28/23 04/29/23 Metoprolol Succinate [Toprol Xl] 25 mg PO DAILY 03/28/23 04/29/23 Potassium Chloride [K-Dur] 20 meq PO BIDWM #20 tablet 10/15/23 - Allergies Allergies/Adverse Reactions: Allergies Allergy/AdvReac Type Severity Reaction Status Date / Time No Known Drug Allergies Allergy Verified 10/15/23 00:33 - Social History Does the pt smoke?: No Smoking Status: Never smoker Does the pt drink ETOH?: No Does the pt have substance abuse?: No - Immunizations Immunizations are current?: Yes - POLST Patient has POLST: No PD ED PE NORMAL - Vitals Vital signs reviewed: Yes - General General: No acute distress, Well developed/nourished, Other (alert and interactive at baseline) - HEENT HEENT: Atraumatic, PERRL, EOMI - Neck Neck: Supple, no meningeal sign - Cardiac Cardiac: RRR - Respiratory Respiratory: No respiratory distress, Clear bilaterally - Derm Derm: Normal color, Warm and dry - Neuro Neuro: Alert and oriented X 3, No motor deficit, No sensory deficit - Psych Psych: Normal mood, Normal affect Results - Vitals Vitals: Vital Signs - 24 hr 10/15/23 00:29 Temperature 36.0 C L Heart Rate 104 H Respiratory 16 Rate Blood Pressure 174/70 H O2 Saturation 99 Oxygen O2 Source Room air - EKG (time done) 0044 EKG releavant findings:: EKG personally interpreted by author of this note. Relevant findings are: Rate: Rate (enter#) (99) Rhythm: NSR [place]: LAD Ischemia: ST depression (borderline std in v5, v6 c/w hypokalemia) - Labs Labs: Laboratory Tests 10/15/23 10/15/23 00:55 00:55 WBC 4.9 RBC 3.31 L Hgb 11.2 L Hct 32.3 L MCV 97.6 MCH 33.8 H MCHC 34.7 RDW 15.9 H Plt Count 98 L MPV 12.8 H Neut # (Auto) 2.8 Lymph # (Auto) 1.7 [place] # (Auto) 0.3 Eos # (Auto) 0.1 Baso # (Auto) 0.0 Absolute Nucleated RBC 0.00 Nucleated RBC % 0.0 Manual Slide Review Indicated WBC Morphology NORMAL APPEARANCE Platelet Estimate DECREASED (<130,000) Platelet Morphology NORMAL APPEARANCE RBC Morph Micro Appear 1+ ANISOCYTOSIS Sodium 130 L Potassium 2.7 L Chloride 95 L Carbon Dioxide 27 Anion Gap 8.0 BUN 16 Creatinine 1.0 Estimated GFR (MDRD) 53 L Glucose 140 H Calcium 9.6 Magnesium 1.9 PD Medical Decision Making - ED course ED course: 83yF presents from clinic with low potassium on outpatient labs, confirmed on repeat here today. also with ekg showing ST depression characteristic of hypokalemia. oral and IV potassium provided. plan to recheck and if improved, have her f/u with pcp for recheck in 1 week. return precautions given. Departure - Departure Clinical Impression: Hypokalemia Condition: Stable Instructions: Hypokalemia Dc, Potassium Supplements Prescriptions: Potassium Chloride [K-Dur] 20 meq PO BIDWM #20 tablet Comments: You were seen in the emergency department for Low potassium. Your doctor may need to switch you from hydrochlorothiazide to a new medication for blood pressure. In the meantime, I am prescribing potassium supplements which were sent electronically to [facility]. Please follow-up with your primary care provider and return to the emergency department if you have any new or worsening symptoms or other concerns. Forms: PCP List
[2023-10-15] MEDS: SODIUM CHLORIDE 0.9% 500 ML IV STA (00:59)
[2023-10-15] MEDS: POTASSIUM CHLORIDE 20 MEQ/15 ML UDC PO STA (00:59)
[2023-10-15] MEDS: POTASSIUM CHLOR 10 MEQ/100 ML 10 MEQ/100 ML BAG IV STA ×2 (00:59→04:09)
[2023-10-15 02:11] LABS: BASOPHILS % (AUTO) 0.2 %; EOSINOPHILS # (AUTO) 0.1 10^3/uL (0.0-0.7); EOSINOPHILS % (AUTO) 2.3 %; HCT - HEMATOCRIT 32.3 % (37.0-47.0); HGB - HEMOGLOBIN 11.2 g/dL (12.0-16.0); LYMPHOCYTES # (AUTO) 1.7 10^3/uL (1.5-3.5); LYMPHOCYTES % (AUTO) 34.8 %; MEAN CORPUSCULAR HEMOGLOBIN 33.8 pg (27.0-31.0); MEAN CORPUSCULAR HGB CONC 34.7 g/dL (32.0-36.0); MEAN CORPUSCULAR VOLUME 97.6 fL (81.0-99.0); MEAN PLATELET VOLUME 12.8 fL (7.9-10.8); MONOCYTES # (AUTO) 0.3 10^3/uL (0.0-1.0); NEUTROPHILS # (AUTO) 2.8 10^3/uL (1.5-6.6); NEUTROPHILS % (AUTO) 56.7 %; PLT - PLATELET COUNT 98 10^3/uL (130-450); RED BLOOD COUNT 3.31 10^6/uL (4.20-5.40); RED CELL DISTRIBUTION WIDTH 15.9 % (12.0-15.0); WHITE BLOOD COUNT 4.9 x10^3/uL (4.8-10.8)
[2023-10-15 02:40] LABS: PLATELET ESTIMATE, MANUAL DECREASED (<130,000) (NORMAL); PLATELET MORPHOLOGY NORMAL APPEARANCE (NORMAL); SLIDE REVIEW? Indicated
[2023-10-15 02:42] LABS: WBC MORPHOLOGY (MULTIPLE) NORMAL APPEARANCE (NORMAL)
[2023-10-15 02:48] LABS: MAGNESIUM 1.9 mg/dL (1.7-2.3)
[2023-10-15 02:49] LABS: CALCIUM 9.6 mg/dL (8.5-10.3); POTASSIUM 2.7 mmol/L (3.5-4.5)
[2023-10-15 03:46] VITALS: O2SAT 100
[2023-10-15 03:57] LABS: CALCIUM 9.4 mg/dL (8.5-10.3); POTASSIUM 3.4 mmol/L (3.5-4.5)
[2023-10-15 04:35] VITALS: BP 112/67
== END 2023-10-15 04:29 | disposition home or self-care (01) ==
LOC: ED 00:13
DX: E87.6 Hypokalemia (principal); I10 Essential (primary) hypertension; Z79.899 Other long term (current) drug therapy
CPT/HCPCS: 36415; 80048; 83735; 85025; 93005; 96365; 96366; 99284; A9270

== ENCOUNTER 2023-10-21 12:11 | Outpatient (CLI) | payer MEDICARE, MEDICAID ==
[2023-10-21 17:46] LABS: BASOPHILS % (AUTO) 0.6 %; EOSINOPHILS # (AUTO) 0.1 10^3/uL (0.0-0.7); EOSINOPHILS % (AUTO) 1.9 %; HCT - HEMATOCRIT 28.3 % (37.0-47.0); HGB - HEMOGLOBIN 9.1 g/dL (12.0-16.0); LYMPHOCYTES # (AUTO) 1.5 10^3/uL (1.5-3.5); LYMPHOCYTES % (AUTO) 47.9 %; MEAN CORPUSCULAR HEMOGLOBIN 33.3 pg (27.0-31.0); MEAN CORPUSCULAR HGB CONC 32.2 g/dL (32.0-36.0); MEAN CORPUSCULAR VOLUME 103.7 fL (81.0-99.0); MEAN PLATELET VOLUME 12.7 fL (7.9-10.8); MONOCYTES # (AUTO) 0.2 10^3/uL (0.0-1.0); MONOCYTES % (AUTO) 7.8 %; NEUTROPHILS # (AUTO) 1.3 10^3/uL (1.5-6.6); NEUTROPHILS % (AUTO) 41.8 %; PLT - PLATELET COUNT 83 10^3/uL (130-450); RED BLOOD COUNT 2.73 10^6/uL (4.20-5.40); RED CELL DISTRIBUTION WIDTH 18.4 % (12.0-15.0); WHITE BLOOD COUNT 3.1 x10^3/uL (4.8-10.8)
[2023-10-21 17:53] LABS: ALBUMIN 3.1 g/dL (3.2-5.5); ALBUMIN/GLOBULIN RATIO 0.7 (1.0-2.2); CALCIUM 9.2 mg/dL (8.5-10.3); CREATININE 1.2 mg/dL (0.6-1.3); POTASSIUM 3.7 mmol/L (3.5-4.5); TOTAL PROTEIN 7.5 g/dL (6.4-8.9)
[2023-10-21 18:00] LABS: INR 1.3 (0.8-1.2); PT - PROTHROMBIN TIME 13.8 secs (9.9-12.6)
[2023-10-22 09:10] LABS: HCV AB Non Reactive (Non Reactive)
[2023-10-23 00:08] LABS: HBsAG SCREEN Negative (Negative)
== END 2023-10-21 12:12 ==
LOC: LAB.N 12:11
PROVIDERS: ATTEND Nurse Practitioner
DX: R74.8 Abnormal levels of other serum enzymes (principal)
CPT/HCPCS: 36415; 80053; 82105; 85025; 85610; 86704; 86803; 87340

== ENCOUNTER 2023-11-20 14:51 | Outpatient (CLI) | payer MEDICARE, MEDICAID | END 2023-11-20 14:52 | disposition home or self-care (01) | LOC: LAB.N 14:51 | PROVIDERS: ATTEND Nurse Practitioner | DX: Z53.9 Procedure and treatment not carried out, unspecified reason (principal) ==

== ENCOUNTER 2023-11-20 15:43 | Outpatient (CLI) | payer MEDICARE, MEDICAID ==
[2023-11-20 16:02] LABS: BASOPHILS % (AUTO) 0.3 %; EOSINOPHILS % (AUTO) 1.7 %; HCT - HEMATOCRIT 29.3 % (37.0-47.0); HGB - HEMOGLOBIN 9.5 g/dL (12.0-16.0); LYMPHOCYTES % (AUTO) 49.5 %; MEAN CORPUSCULAR HEMOGLOBIN 34.8 pg (27.0-31.0); MEAN CORPUSCULAR HGB CONC 32.4 g/dL (32.0-36.0); MEAN CORPUSCULAR VOLUME 107.3 fL (81.0-99.0); MEAN PLATELET VOLUME 11.2 fL (7.9-10.8); MONOCYTES % (AUTO) 9.8 %; NEUTROPHILS % (AUTO) 38.7 %; PLT - PLATELET COUNT 76 10^3/uL (130-450); RED BLOOD COUNT 2.73 10^6/uL (4.20-5.40); RED CELL DISTRIBUTION WIDTH 18.2 % (12.0-15.0)
[2023-11-20 16:05] LABS: ABNORMAL LYMPHS % (MANUAL) 0 %; BAND NEUTROPHILS % (MANUAL) 0 %
[2023-11-20 16:18] LABS: PARTIAL THROMBOPLASTIN TIME 37.5 secs (24.9-33.3)
[2023-11-20 16:19] LABS: ALBUMIN 2.7 g/dL (3.2-5.5); ALBUMIN/GLOBULIN RATIO 0.6 (1.0-2.2); BILIRUBIN,TOTAL 3.9 mg/dL (0.2-1.0); CALCIUM 8.9 mg/dL (8.5-10.3); CREATININE 1.1 mg/dL (0.6-1.3); POTASSIUM 3.6 mmol/L (3.5-4.5); TOTAL PROTEIN 7.4 g/dL (6.4-8.9)
[2023-11-20 16:22] LABS: EOSINOPHILS # (MANUAL) 0.1 10^3/uL (0-0.7); LYMPHOCYTES # (MANUAL) 1.4 10^3/uL (1.5-3.5); LYMPHOCYTES % (MANUAL) 47 %; MONOCYTES # (MANUAL) 0.4 10^3/uL (0.0-1.0); NEUTROPHILS # (MANUAL) 1.1 10^3/uL (1.5-6.6); PLATELET ESTIMATE, MANUAL DECREASED (<130,000) (NORMAL); PLATELET MORPHOLOGY NORMAL APPEARANCE (NORMAL)
[2023-11-20 16:23] LABS: DIFFERENTIAL COMMENT MANUAL DIFFERENTIAL; INR 1.6 (0.8-1.2); PT - PROTHROMBIN TIME 17.2 secs (9.9-12.6)
[2023-11-20 16:55] LABS: FERRITIN 93.6 ng/mL (11.0-306.8)
[2023-11-21 06:12] LABS: HBsAG SCREEN Negative (Negative)
== END 2023-11-20 15:44 | disposition home or self-care (01) ==
LOC: LAB 15:43
PROVIDERS: ATTEND Nurse Practitioner
DX: R74.8 Abnormal levels of other serum enzymes (principal); E83.119 Hemochromatosis, unspecified; D64.9 Anemia, unspecified; B19.10 Unspecified viral hepatitis B without hepatic coma
CPT/HCPCS: 36415; 80053; 82140; 82728; 83540; 84466; 85025; 85610; 85730; 87340

== ENCOUNTER 2023-12-06 15:29 | Outpatient (CLI) | payer MEDICARE, MEDICAID ==
--- NOTE | 2023-12-06 16:40 | Ultrasound Report ---
PROCEDURE: Pelvic Complete INDICATIONS: OVARIAN CYST TECHNIQUE: Real-time transabdominal scanning was performed of the pelvic organs, with image documentation. COMPARISON: Correlation is made with abdominal ultrasound, 09/09/2022. FINDINGS: Uterus: Uterus is anteverted and normal in size at 7.1 x 2.7 x 3.7 cm. The myometrium is homogeneou s. The endometrium measures 6.7 mm mm in combined thickness. Free fluid is seen along the endometri al canal. Ovaries: Neither ovary is at least seen. There is a right adnexal cyst seen that measures up to 3.3 c m. Other: A large volume of ascites is seen. An abnormal liver is seen, which appears hyperemic and nodular. Scan quality is limited, secondary to body habitus and ascites. IMPRESSION: There is a 3.3 cm right adnexal cyst. Please consider a cystic ovarian neoplasm in a patient of this age. The ovaries themselves are not well seen. The endometrial stripe is abnormally thickened at 6.7 mm. Please correlate with postmenopausal bleedi ng. Differential diagnosis includes endometrial hyperplasia and endometrial carcinoma. - Please consider correlation with endometrial histology, as clinically appropriate. Large volume of ascites seen. Likely liver cirrhosis. Please correlate with known patient history. Note: Concordant preliminary findings given by the financial foundations associate upon the completion of the examination to Saroj Santana at 4:20 PM Reviewed by: Jed Busby MD on 12/06/2023 3:38 PM [facility] Approved by: Jed Busby MD on 12/06/2023 3:38 PM [facility] Station ID: [id number]
== END 2023-12-06 15:30 | disposition home or self-care (01) ==
LOC: DI 15:29
PROVIDERS: ATTEND Nurse Practitioner
DX: N94.89 Other specified conditions associated with female genital organs and menstrual cycle (principal); R93.89 Abnormal findings on diagnostic imaging of other specified body structures; R18.8 Other ascites

== ENCOUNTER 2023-12-31 08:22 | Outpatient (CLI) | payer MEDICARE, MEDICAID ==
[~2023-12-31 08:22] MED LIST: GADOTERATE MEGLUMINE 5 MMOL/10 ML VIAL ONE
== END 2023-12-31 08:23 | disposition home or self-care (01) ==
LOC: LAB 08:22
PROVIDERS: ATTEND Nurse Practitioner
DX: N83.291 Other ovarian cyst, right side (principal)

== ENCOUNTER 2024-01-17 17:30 | Outpatient (CLI) | payer MEDICARE, MEDICAID | END 2024-01-17 23:59 | disposition critical access hospital (66) | LOC: EMS 17:30 | DX: R55 Syncope and collapse (principal); R14.0 Abdominal distension (gaseous); R00.0 Tachycardia, unspecified; R11.2 Nausea with vomiting, unspecified | CPT/HCPCS: A0425; A0427 ==

== ENCOUNTER 2024-01-17 17:54 | Inpatient (IN) | payer MEDICARE, MEDICAID ==
[2024-01-17 18:32] LABS: HCT - HEMATOCRIT 27.6 % (37.0-47.0); HGB - HEMOGLOBIN 8.9 g/dL (12.0-16.0); LYMPHOCYTES # (AUTO) 1.7 10^3/uL (1.5-3.5); LYMPHOCYTES % (AUTO) 27.3 %; MEAN CORPUSCULAR HEMOGLOBIN 35.5 pg (27.0-31.0); MEAN CORPUSCULAR HGB CONC 32.2 g/dL (32.0-36.0); MEAN PLATELET VOLUME 11.8 fL (7.9-10.8); MONOCYTES # (AUTO) 0.6 10^3/uL (0.0-1.0); MONOCYTES % (AUTO) 9.8 %; NEUTROPHILS # (AUTO) 3.8 10^3/uL (1.5-6.6); NEUTROPHILS % (AUTO) 61.1 %; PLT - PLATELET COUNT 95 10^3/uL (130-450); RED BLOOD COUNT 2.51 10^6/uL (4.20-5.40); RED CELL DISTRIBUTION WIDTH 14.8 % (12.0-15.0); WHITE BLOOD COUNT 6.2 x10^3/uL (4.8-10.8)
[2024-01-17 18:40] LABS: INR 2.1 (0.8-1.2); PT - PROTHROMBIN TIME 22.4 secs (9.9-12.6)
[2024-01-17 18:49] LABS: ALBUMIN 2.5 g/dL (3.2-5.5); ALBUMIN/GLOBULIN RATIO 0.6 (1.0-2.2); BILIRUBIN,TOTAL 2.1 mg/dL (0.2-1.0); CALCIUM 8.4 mg/dL (8.5-10.3); CREATININE 1.1 mg/dL (0.6-1.3); POTASSIUM 4.7 mmol/L (3.5-4.5); TOTAL PROTEIN 6.6 g/dL (6.4-8.9)
--- NOTE | 2024-01-17 19:12 | ED Physician Documentation ---
PD HPI ABD PAIN - Stated complaint Stated Complaint: SYNCOPE - Chief complaint Chief Complaint: Abd Pain - Additional information Additional information: 83-year-old female with recent diagnosis of autoimmune hepatitis has hypertension presents emergency department after syncopal episode. Patient is unsure what happened she was sitting on the couch with family she fell forward and family saw patient laying on her face with a large amount of blood under her. Patient appeared to have blood coming from her mouth as well as a bloody nose. She then awoke family called 911 and presents emergency department now with ongoing hematemesis. 1 large hematemesis here in the ER she does endorse and some mild right upper quadrant pain with nausea.She denies any new medications no recent blood thinners denies alcohol use. Patient was recently put on a steroid taper has been on it for about a week now unclear why. PD PAST MEDICAL HISTORY - Past Medical History Past Medical History: Yes Cardiovascular: Hypertension Respiratory: None Neuro: None Endocrine/Autoimmune: None - Past Surgical History Past Surgical History: No - Present Medications Home Medications: Ambulatory Orders Medication Instructions Recorded Confirmed Losartan Potassium 100 mg PO DAILY 03/28/23 01/17/24 Furosemide [Lasix] 20 mg PO DAILY 01/17/24 01/17/24 Spironolactone [Aldactone] 50 mg PO DAILY 01/17/24 01/17/24 predniSONE [Prednisone] 10 mg PO DAILY 01/17/24 01/17/24 - Allergies Allergies/Adverse Reactions: Allergies Allergy/AdvReac Type Severity Reaction Status Date / Time No Known Drug Allergies Allergy Verified 01/17/24 18:10 - Social History Does the pt smoke?: No Smoking Status: Never smoker Does the pt drink ETOH?: No Does the pt have substance abuse?: No - Immunizations Immunizations are current?: Yes - POLST Patient has POLST: No PD ED PE NORMAL - Vitals Vital signs reviewed: Yes - General General: Other (Cachectic, ill-appearing) Results - Vitals Vitals: Oxygen O2 Source Room air - EKG (time done) 1821 EKG releavant findings:: EKG personally interpreted by author of this note. Relevant findings are: Rate: Rate (enter#) (108) Rhythm: NSR [place]: Normal Intervals: Normal ND QRS: Normal Ischemia: Normal ST segments Computer interpretation: Agree with computer - Labs Labs: Laboratory Tests 0601/17/24 01/17/24 18:21 18:21 18:21 WBC 6.2 RBC 2.51 L Hgb 8.9 L Hct 27.6 L MCV 110.0 H MCH 35.5 H MCHC 32.2 RDW 14.8 Plt Count 95 L MPV 11.8 H Neut # (Auto) 3.8 Lymph # (Auto) 1.7 [place] # (Auto) 0.6 Eos # (Auto) 0.0 Baso # (Auto) 0.0 Absolute Nucleated RBC 0.00 Nucleated RBC % 0.0 PT INR Sodium 133 L Potassium 4.7 H Chloride 104 Carbon Dioxide 26 Anion Gap 3.0 L BUN 35 H Creatinine 1.1 Estimated GFR (MDRD) 48 L Glucose 156 H POC Whole Bld Glucose Calcium 8.4 L Total Bilirubin 2.1 H AST 56 H ALT 69 H Alkaline Phosphatase 121 Ammonia Total Protein 6.6 Albumin 2.5 L Globulin 4.1 Albumin/Globulin Ratio 0.6 L Lipase 116 H Urine Color Urine Clarity Urine pH Ur Specific [place] Urine Protein Urine Glucose (UA) Urine Ketones Urine Occult Blood Urine Nitrite Urine Bilirubin Urine Urobilinogen Ur Leukocyte Esterase Ur Microscopic Review Urine Culture Comments Blood Type O POSITIVE Blood Type Recheck Antibody Screen NEGATIVE Crossmatch IS Only See Detail 01/17/24 01/17/24 01/17/24 18:21 18:24 19:30 WBC RBC Hgb Hct MCV MCH MCHC RDW Plt Count MPV Neut # (Auto) Lymph # (Auto) [place] # (Auto) Eos # (Auto) Baso # (Auto) Absolute Nucleated RBC Nucleated RBC % PT 22.4 H INR 2.1 H Sodium Potassium Chloride Carbon Dioxide Anion Gap BUN Creatinine Estimated GFR (MDRD) Glucose POC Whole Bld Glucose Calcium Total Bilirubin AST ALT Alkaline Phosphatase Ammonia Total Protein Albumin Globulin Albumin/Globulin Ratio Lipase Urine Color YELLOW Urine Clarity CLEAR Urine pH 7.0 Ur Specific [place] 1.015 Urine Protein NEGATIVE Urine Glucose (UA) NEGATIVE Urine Ketones NEGATIVE Urine Occult Blood NEGATIVE Urine Nitrite NEGATIVE Urine Bilirubin NEGATIVE Urine Urobilinogen 0.2 (NORMAL) Ur Leukocyte Esterase NEGATIVE Ur Microscopic Review NOT INDICATED Urine Culture Comments NOT INDICATED Blood Type Blood Type Recheck O POSITIVE Antibody Screen Crossmatch IS Only 01/17/24 01/17/24 01/17/24 21:55 22:26 22:59 WBC RBC Hgb 6.1 L* Hct 19.5 L* MCV MCH MCHC RDW Plt Count MPV Neut # (Auto) Lymph # (Auto) [place] # (Auto) Eos # (Auto) Baso # (Auto) Absolute Nucleated RBC Nucleated RBC % PT INR Sodium Potassium Chloride Carbon Dioxide Anion Gap BUN Creatinine Estimated GFR (MDRD) Glucose POC Whole Bld Glucose 132 H Calcium Total Bilirubin AST ALT Alkaline Phosphatase Ammonia 60.8 Total Protein Albumin Globulin Albumin/Globulin Ratio Lipase Urine Color Urine Clarity Urine pH Ur Specific [place] Urine Protein Urine Glucose (UA) Urine Ketones Urine Occult Blood Urine Nitrite Urine Bilirubin Urine Urobilinogen Ur Leukocyte Esterase Ur Microscopic Review Urine Culture Comments Blood Type Blood Type Recheck Antibody Screen Crossmatch IS Only - Rads (name of study) Head CT without Relevant Findings:: Final report received, EMP independent interpretation of test, Other (No acute intracranial pathology no Cavalarium fracture) Cervical spine without Relevant Findings:: Final report received, EMP independent interpretation of test, Other (No acute displaced fracture or traumatic subluxation) Abdomen pelvis CT with Relevant Findings:: Final report received, EMP independent interpretation of test, Other (cirrhotic liver with large amount of ascites, esophagael varisces) PD Medical Decision Making - ED course ED course: 83-year-old female presents emergency department via EMS originally for hematemesis and syncopal episode. She was recently started on prednisone but unsure why. She does have a GI doctor and she was recently diagnosed with autoimmune hepatitis. She had 1 hematemesis and route to the emergency department and 1 hematemesis episode here in the emergency department about 200 cc of ashly blood. Upon initial arrival to the emergency department patient was alert and oriented and we had a lengthy conversation with the patient and her daughter if her heart were to stop beating would she want chest compressions and further intervention patient was very clear minded sound minded she smiled at me and the daughter and she said no just let me go. Hemoglobin upon arrival was 8.9 last hemoglobin was taken about 2 weeks ago and it was 10.1. She was hemodynamically stable upon arrival to the emergency department, PT 22.4, INR 2.1. Further labs showed mild hyperkalemia 4.7, mild hyponatremia 133, BUN 35, creatinine 1.1, GFR 48. Head CT was complete for further evaluation of syncopal episode especially as she did hit her head and she did hit her head CT did not show any sort of intracranial abnormalities or hemorrhages. CT cervical was also cannot complete and did not show any fractures or subluxation. CT abdomen pelvis with contrast was complete which revealed cirrhotic liver with large amount of ascites, cholelithiasis with mild and mild circumferential wall thickening possible pericholecystic stranding. Mild circumferential wall thickening diffusely scattered small bowel loops. Likely related to adjacent ascites. Diverticulosis without diverticulitis, small hiatal hernia with small esophageal varices. Dr. Guerin was then called to discuss the patient findings and to see if patient would be an appropriate candidate to be here at the hospital and unfortunately the patient is not an appropriate candidate for here and will need a higher level of care. At around 2200 patient's daughter ran frantically in the hallway asking for help when I went to evaluate the patient she was unresponsive and was appearing to have some sort of seizure-like activity. Her eyes were unresponsive she was remaining 100% oxygenated on room air patient was not tracking any eye movement and was making repetitive mouth movement. She was given 2 mg of IV Ativan as this was likely due to a seizure. After this episode patient's labs were rechecked and Her hemoglobin had dropped significantly, hemoglobin 6.1, hematocrit 19.5. Patient remained unresponsive and 2 units of RBCs were ordered stat. Her blood pressure started to drop her maps were in the high 50s low 60s she responded well to 500 cc of normal saline. Patient remained unresponsive most likely due to the Ativan and being postictal but she then started to have what sounded like agonal breathing. From there further discussion was had with the patient's daughter who is at bedside and power of bankruptcy attorney as well as the patient's family via [place] who all live in the [facility]. I asked them what further interventions they Would like to pursue as the patient's hemoglobin was dropping pretty significantly pretty quickly and her blood pressure was also starting to drop pretty quickly as well. Patient's daughter as well as additional family members including her son and her grandchildren are on the phone who said that they would always like to decide together as a family to no longer pursue medical intervention at this time. They understand that the mother's condition is imminent and they do not want her to continue to under go medical intervention understand that their mother will most likely be dying very soon. Patient's daughter as well as granddaughter are asking for all medical intervention to stop and are asking to just keep their mother and grandmother comfortable at this point in time and would like to pursue comfort care measures only and they understand that this means hospice. Departure - Departure Disposition: ED Place in Observation Clinical Impression: Esophageal varices, Autoimmune hepatitis, GI bleed, Hyperkalemia Discharge Date/Time: 01/18/24 02:26
[2024-01-17] MEDS ORDERED: iohexoL-300 100 ML VIAL ONE (19:17)
[2024-01-17] MEDS: SODIUM CHLORIDE 0.9% 1,000 ML IV ONE (19:26)
[2024-01-17] MEDS: ONDANSETRON 4 MG/2 ML VIAL IVP STA (19:41)
[2024-01-17] MEDS: PANTOPRAZOLE 40 MG VIAL IVP STA (19:41)
[2024-01-17] MEDS: SODIUM CHLORIDE 0.9% 500 ML IV ONE (19:41)
[2024-01-17 20:23] LABS: BILIRUBIN,URINE NEGATIVE (NEGATIVE); GLUCOSE, URINE (UA) NEGATIVE (NEGATIVE); KETONES,URINE (UA) NEGATIVE (NEGATIVE); LEUKOCYTE ESTERASE, URINE NEGATIVE (NEGATIVE); NITRITE,URINE NEGATIVE (NEGATIVE); OCCULT BLOOD,URINE NEGATIVE (NEGATIVE); PROTEIN,URINE NEGATIVE (NEGATIVE); UROBILINOGEN,URINE 0.2 (NORMAL) E.U./dL (NORMAL)
[2024-01-17 20:25] LABS: CLARITY,URINE CLEAR (CLEAR)
--- NOTE | 2024-01-17 20:35 | CT Report ---
PROCEDURE: Cervical Spine WO INDICATIONS: GLF, syncope TECHNIQUE: Noncontrast 3 mm thick sections acquired from the skull base to the T4 level. Sagittal and coronal r eformats were then constructed. For radiation dose reduction, the following was used: automated exp osure control, adjustment of mA and/or kV according to patient size. COMPARISON: None. FINDINGS: Image quality: Diagnostic. Bones: No acute fractures or dislocations. No acute compression fractures of the vertebral bodies. Craniocervical junction is intact. C1-C2 relationship is preserved. Visualized superior ribs are inta ct. Multilevel cervical spondylosis. Normal alignment. Soft tissues: Prevertebral soft tissues are normal in thickness. No paravertebral hematomas. No ap ical pneumothoraces. IMPRESSION: No acute, displaced fracture or traumatic subluxation. Multilevel cervical spondylosis. Reviewed by: Bryan Godoy MD on 01/17/2024 8:34 PM PDT Approved by: Bryan Godoy MD on 01/17/2024 8:34 PM PDT Station ID: [id number]
--- NOTE | 2024-01-17 20:36 | CT Report ---
PROCEDURE: Head WO INDICATIONS: GLF, syncope TECHNIQUE: Noncontrast 4.5 mm thick angled axial sections acquired from the foramen magnum to the vertex. For r adiation dose reduction, the following was used: automated exposure control, adjustment of mA and/or kV according to patient size. COMPARISON: None. FINDINGS: Image quality: Diagnostic. CSF spaces: Basal cisterns are patent. No extra-axial fluid collections. Ventricles are normal in size and shape. Brain: No midline shift. No intracranial masses or hemorrhage. No mass effect. Hernandez-white matter i nterface is normal. There cerebral volume loss for age with resultant ventricular and sulcal prominen ce. There are periventricular and deep white matter chronic small vessel ischemic changes. Atheroscle rotic calcifications are noted in the intracranial segments of the bilateral internal carotid arterie s. Skull and face: Calvarium and visualized facial bones are intact, without suspicious lesions. Sinuses: Visualized sinuses and mastoids are clear. IMPRESSION: No acute intracranial pathology. No acute calvarial fracture. Age-related senescent changes and sequela chronic small vessel ischemic disease. Reviewed by: Bryan Godoy MD on 01/17/2024 8:35 PM PDT Approved by: Bryan Godoy MD on 01/17/2024 8:35 PM PDT Station ID: [id number]
--- NOTE | 2024-01-17 20:47 | CT Report ---
PROCEDURE: Abdomen/Pelvis W INDICATIONS: hepatitis, Hematemesis CONTRAST: 100 ML OMNI 300 TECHNIQUE: After the administration of intravenous contrast, a CT scan of the abdomen and pelvis was performed. Images were recorded and evaluated at appropriate window settings. Reformats: coronal and sagittal. F or radiation dose reduction, the following was used: automated exposure control, adjustment of mA and /or kV according to patient size. COMPARISON: None. FINDINGS: Image quality: Diagnostic. Lower chest: Bibasilar atelectasis. Small hiatal hernia. Liver: Hepatic steatosis. Incompletely characterized 0.7 cm hepatic hypodensity likely representing a cyst or hemangioma. Nodular liver contour consistent with cirrhosis. No focal enhancing mass lesion identified. Gallbladder: Gallbladder contains multiple hypodense gallstones. Minimal wall thickening with mild pe richolecystic stranding, possibly accentuated by surrounding ascites. Calcified granulomas. Biliary tree: No intrahepatic or extrahepatic dilation, accounting for age. Spleen: No splenomegaly. Scattered splenic calcified granulomas. Pancreas: No pancreatic ductal dilation. Adrenals: No adrenal nodule. Kidneys and ureters: No hydronephrosis. No renal cystic lesion which requires follow up. Small left p artially exophytic renal hypodensity likely representing a cyst. Bilateral ureters are normal in cour se and caliber. No solid mass. Stomach, bowel and peritoneum: Mild gastric distention without distal gastric wall thickening, mass l esion or adenopathy. Mild circumferentially wall thickening of diffusely scattered small bowel loops without significant distention/dilatation may represent sequela of adjacent ascites. An infectious/in flammatory process not excluded if clinically appropriate. No evidence to suggest small bowel obstruc tion. Scattered colonic diverticula without acute diverticulitis. Large amount of scattered ascites. Lymph nodes: No central or retroperitoneal adenopathy. Vessels: No infrarenal aortic aneurysm. Patent portal vein. A few esophageal varices. PELVIS Reproductive organs: Unremarkable. Bladder: No abnormal wall thickening, accounting for underdistention. Pelvic lymph nodes: No pelvic adenopathy by size criteria. Bones: No aggressive osseous abnormality. Other: No significant ventral or inguinal hernia. Diffuse anasarca. IMPRESSION: CT abdomen and pelvis without evidence for acute traumatic injury. Cirrhotic liver with large amount of ascites. Cholelithiasis with mild circumferential wall thickening and possible pericholecystic stranding. [place] mmend clinical correlation for acute cholecystitis. Findings may be accentuated by adjacent ascites. Mild circumferential wall thickening of diffusely scattered small bowel loops likely related to adjac ent ascites. However, an infectious or inflammatory enteritis not excluded if clinically appropriate. No evidence for small bowel obstruction. Diverticulosis of the colon without acute diverticulitis. Small hiatal hernia with small esophageal varices. Other chronic findings as above. Reviewed by: Bryan Godoy MD on 01/17/2024 8:45 PM PDT Approved by: Bryan Godoy MD on 01/17/2024 8:45 PM PDT Station ID: [id number]
[2024-01-17] MEDS: iohexoL-300 100 ML VIAL IVP ONE (21:25)
[2024-01-17] MEDS ORDERED: LORazepam 2 MG/ML VIAL ONE (21:51)
[2024-01-17] MEDS: LORazepam 2 MG/ML VIAL IVP STA (21:55)
[2024-01-17 23:07] LABS: HCT - HEMATOCRIT 19.5 % (37.0-47.0); HGB - HEMOGLOBIN 6.1 g/dL (12.0-16.0)
[2024-01-18] MEDS: MORPHINE 10 MG/ML VIAL IVP STA ×2 (00:04→01:28)
--- NOTE | 2024-01-18 01:14 | ED Physician Documentation ---
ED Addendum - Addendum Addendum: 01/18/24 05:44 83-year-old female received a signout from off going [facility]. Please see their documentation for further detail. In short 83-year-old female with significant medical history for autoimmune hepatitis with esophageal varices presents with upper GI bleed as well as developing encephalopathy and a seizure event in the emergency department. Conversation with family given negative prognosis and overall goals of care was for comfort related care here in the emergency room. I discussed with the hospitalist service who graciously agreed to hospitalize for likely end-of-life care.
[2024-01-18] MEDS: LORazepam 2 MG/ML VIAL IVP STA (01:28)
[2024-01-18] MEDS ORDERED: ATROPINE 1% OPHTH DROPS 2 ML SL PRN (01:54)
[2024-01-18] MEDS ORDERED: METOCLOPRAMIDE 10 MG/2 ML VIAL IVP PRN (01:54)
[2024-01-18] MEDS ORDERED: ACETAMINOPHEN 160 MG/5 ML SUSP UDC PO PRN (01:54)
[2024-01-18] MEDS ORDERED: HALOPERIDOL 5 MG/ML VIAL IVP PRN (01:54)
[2024-01-18] MEDS ORDERED: MORPHINE SOL 10 MG/0.5 ML ORAL SYRINGE PO PRN (01:54)
[2024-01-18] MEDS ORDERED: LOPERAMIDE 2 MG CAPSULE PO PRN (01:54)
--- NOTE | 2024-01-18 02:03 | HISTORY & PHYSICAL EXAMINATION ---
Chief Complaint - Chief Complaint Chief Complaint: Abdominal pain on arrival to ER History of Present Illness - Admitted From Admitted From:: Home - History Obtained From Records Reviewed: Yes History obtained from: ER team and patients daughter Exam Limitations: Patient is non responsvie - History of Present Illness HPI Comment/Other: 3-year-old female with recent diagnosis of autoimmune hepatitis has hypertension presents emergency department after syncopal episode. Patient is unsure what happened she was sitting on the couch with family she fell forward and family saw patient laying on her face with a large amount of blood under her. Patient appeared to have blood coming from her mouth as well as a bloody nose. She then awoke family called 911 and presents emergency department now with ongoing hematemesis. 1 large hematemesis here in the ER she does endorse and some mild right upper quadrant pain with nausea.She denies any new medications no recent blood thinners denies alcohol use. Patient was recently put on a steroid taper has been on it for about a week now unclear why. Events in ER "83-year-old female presents emergency department via EMS originally for hematemesis and syncopal episode. She was recently started on prednisone but unsure why. She does have a GI doctor and she was recently diagnosed with autoimmune hepatitis. She had 1 hematemesis and route to the emergency department and 1 hematemesis episode here in the emergency department about 200 cc of ashly blood. Upon initial arrival to the emergency department patient was alert and oriented and we had a lengthy conversation with the patient and her daughter if her heart were to stop beating would she want chest compressions and further intervention patient was very clear minded sound minded she smiled at me and the daughter and she said no just let me go. Hemoglobin upon arrival was 8.9 last hemoglobin was taken about 2 weeks ago and it was 10.1. She was hemodynamically stable upon arrival to the emergency depar tment, PT 22.4, INR 2.1. Further labs showed mild hyperkalemia 4.7, mild hyponatremia 133, BUN 35, creatinine 1.1, GFR 48. Head CT was complete for further evaluation of syncopal episode especially as she did hit her head and she did hit her head CT did not show any sort of intracranial abnormalities or hemorrhages. CT cervical was also cannot complete and did not show any fractures or subluxation. CT abdomen pelvis with contrast was complete which revealed cirrhotic liver with large amount of ascites, cholelithiasis with mild and mild circumferential wall thickening possible pericholecystic stranding. Mild circumferential wall thickening diffusely scattered small bowel loops. Likely related to adjacent ascites. Diverticulosis without diverticulitis, small hiatal hernia with small esophageal varices. Dr. Guerin was then called to discuss the patient findings and to see if patient would be an appropriate candidate to be here at the hospital and unfortunately the patient is not an appropriate candidate for here and will need a higher level of care. At around 2200 patient's daughter ran frantically in the hallway asking for help when I went to evaluate the patient she was unresponsive and was appearing to have some sort of seizure-like activity. Her eyes were unresponsive she was remaining 100% oxygenated on room air patient was not tracking any eye movement and was making repetitive mouth movement. She was given 2 mg of IV Ativan as this was likely due to a seizure. After this episode patient's labs were rechecked and Her hemoglobin had dropped significantly, hemoglobin 6.1, hematocrit 19.5. Patient remained unresponsive and 2 units of RBCs were ordered stat. Her blood pressure started to drop her maps were in the high 50s low 60s she responded well to 500 cc of normal saline. Patient remained unresponsive most likely due to the Ativan and being postictal but she then started to have what sounded like agonal breathing. From there further discussion was had with the patient's daughter who is at bedside and power of commercial attorney as well as the patient's family via FaceTime who all live in the [place]. I asked them what further interventions they Would like to pursue as the patient's hemoglobin was dropping pretty significantly pretty quickly and her blood pressure was also starting to drop pretty quickly as well. Patient's daughter as well as additional family members including her son and her grandchildren are on the phone who said that they would always like to decide together as a family to no longer pursue medical intervention at this t sophie. They understand that the mother's condition is imminent and they do not want her to continue to under go medical intervention understand that their mother will most likely be dying very soon. Patient's daughter as well as granddaughter are asking for all medical intervention to stop and are asking to just keep their mother and grandmother comfortable at this point in time and would like to pursue comfort care measures only and they understand that this means hospice." I was called to admit patient for end of life I spoke with patients daughter via televideo, daughter initially interested in taking her home but then concerned that what is she wakes up and start bleeding again, I told thedaughter that morning colleagues can try to arrange for home hospice, if she survives the night They will discuss with other family member and will let us know They are aware that patient is critically ill and now thas she on end of life, we will not do any blood draws ro invsavie test instead we will focus on helping her comfortably History - Past Medical History Cardiovascular: reports: Hypertension Respiratory: reports: None Neuro: reports: None Endocrine/Autoimmune: reports: None MRSA Hx?: No - POLST Patient has POLST: No Meds/Allgy - Home Medications Home Medications: Ambulatory Orders Medication Instructions Recorded Confirmed Losartan Potassium 100 mg PO DAILY 03/28/23 01/17/24 Furosemide [Lasix] 20 mg PO DAILY 01/17/24 01/17/24 Spironolactone [Aldactone] 50 mg PO DAILY 01/17/24 01/17/24 predniSONE [Prednisone] 10 mg PO DAILY 01/17/24 01/17/24 - Allergies Allergies/Adverse Reactions: Allergies Allergy/AdvReac Type Severity Reaction Status Date / Time No Known Drug Allergies Allergy Verified 01/17/24 18:10 Review of Systems - Neurological Neurological: reports: Other (Looks at peace, comfortable, unconsious had agonal breathing as per ER MD) - Other Findings Other Findings: Unable to ROS as patient is having agonal breathing, she does look comfortable Prior Level of Functionality: WAAOA x3 yesterday evening Exam - Vital Signs Vital Signs: Vital Signs x48h Temp Pulse Resp BP Pulse Ox 01/17/24 23:30 91 16 105/53 L 97 01/17/24 22:33 79 13 99/52 L 99 01/17/24 22:24 85 17 103/52 L 99 01/17/24 22:00 36 C L 92 14 80/45 L 98 01/17/24 21:00 98 14 142/66 H 98 01/17/24 20:30 97 16 154/67 H 97 01/17/24 20:00 77 14 148/79 H 100 01/17/24 19:10 36.3 C L 64 14 152/67 H 100 01/17/24 18:48 111 H 18 146/71 H 97 01/17/24 18:38 109 H 15 146/71 H 97 - Physical Exam General Appearance: positive: Lethargic Respiratory: positive: Chest non-tender, No respiratory distress Cardiovascular: positive: Irregularly irregular Conclusion/Plan - Problem List (1) Autoimmune hepatitis Conclusion/Plan: 83 yr elderly woman being admitted for 1. Acute Blood loss anemia 2. Syncope 3. End of life care/hospice requested by family 4 SEizure in ER 5. Syncope 6. Hyperammonia 7. Autoimmune hepatitis Recommendations Paient will be placed on comfort care pathway Palliative care consult in am Possible home with home hospice if family wishes and patient survives for next 24 hours Had a long discussion with daughter who is the power of commercial attorney who states her mothers wishes were very clear. - Lab Results Fish Bones: 01/17/24 22:59 01/17/24 18:21 - EKG Results EKG Interpreted Independently: No
[2024-01-18] MEDS: GLYCOPYRROLATE 1 MG/5 ML VIAL SUBQ PRN (03:30)
[2024-01-18 06:37] VITALS: BP 85/50; O2SAT 62
[2024-01-18] MEDS: LORazepam 2 MG/ML VIAL IVP PRN (06:38)
[2024-01-18] MEDS: MORPHINE 2 MG/ML CARPUJECT IVP PRN (07:08)
--- NOTE | 2024-01-18 10:26 | DISCHARGE SUMMARY ---
Discharge Summary Admit Date: 01/18/24 Discharge Date: 01/18/24 Discharging Provider: AIDAN Cain Primary Care Provider: Carly Zamora Code Status: Do Not Attempt Resuscitation Discharge Disposition: 20 - DIAGNOSES Admission Diagnoses: This is acute blood loss anemia Syncope End-of-life care/hospice requested by family Seizure in ED Hyperammonia Autoimmune hepatitis Discharge Diagnoses with Status of Each Condition: Autoimmune hepatitis with cirrhosis, varices and massive GI bleed. Patient was admitted from the emergency department via telemedicine for transition to hospice and comfort care in the setting of acute massive GI hemorrhage. Patient made her wishes clear that she did not wish for any heroic efforts. She peacefully about 6 hours after admission. - HPI History of Present Illness: From the admission history and physical: 83-year-old female with recent diagnosis of autoimmune hepatitis has hypertension presents emergency department after syncopal episode. Patient is unsure what happened she was sitting on the couch with family she fell forward and family saw patient laying on her face with a large amount of blood under her. Patient appeared to have blood coming from her mouth as well as a bloody nose. She then awoke family called 911 and presents emergency department now with ongoing hematemesis. 1 large hematemesis here in the ER she does endorse and some mild right upper quadrant pain with nausea.She denies any new medications no recent blood thinners denies alcohol use. Patient was recently put on a steroid taper has been on it for about a week now unclear why. Events in ER "83-year-old female presents emergency department via EMS originally for hematemesis and syncopal episode. She was recently started on prednisone but unsure why. She does have a GI doctor and she was recently diagnosed with autoimmune hepatitis. She had 1 hematemesis and route to the emergency department and 1 hematemesis episode here in the emergency department about 200 cc of ashly blood. Upon initial arrival to the emergency department patient was alert and oriented and we had a lengthy conversation with the patient and her daughter if her heart were to stop beating would she want chest compressions and further intervention patient was very clear minded sound minded she smiled at me and the daughter and she said no just let me go. Hemoglobin upon arrival was 8.9 last hemoglobin was taken about 2 weeks ago and it was 10.1. She was hemodynamically stable upon arrival to the emergency department, PT 22.4, INR 2.1. Further labs showed mild hyperkalemia 4.7, mild hyponatremia 133, BUN 35, creatinine 1.1, GFR 48. Head CT was complete for further evaluation of syncopal episode especially as she did hit her head and she did hit her head CT did not show any sort of intracranial abnormalities or hemorrhages. CT cervical was also cannot complete and did not show any fractures or subluxation. CT abdomen pelvis with contrast was complete which revealed cirrhotic liver with large amount of ascites, cholelithiasis with mild and mild circumferential wall thickening possible pericholecystic stranding. Mild circumferential wall thickening diffusely scattered small bowel loops. Likely related to adjacent ascites. Diverticulosis without diverticulitis, small hiatal hernia with small esophageal varices. Dr. Guerin was then called to discuss the patient findings and to see if patient would be an appropriate candidate to be here at the hospital and unfortunately the patient is not an appropriate candidate for here and will need a higher lev el of care. At around 2200 patient's daughter ran frantically in the hallway asking for help when I went to evaluate the patient she was unresponsive and was appearing to have some sort of seizure-like activity. Her eyes were unresponsive she was remaining 100% oxygenated on room air patient was not tracking any eye movement and was making repetitive mouth movement. She was given 2 mg of IV Ativan as this was likely due to a seizure. After this episode patient's labs were rechecked and Her hemoglobin had dropped significantly, hemoglobin 6.1, hematocrit 19.5. Patient remained unresponsive and 2 units of RBCs were ordered stat. Her blood pressure started to drop her maps were in the high 50s low 60s she responded well to 500 cc of normal saline. Patient remained unresponsive most likely due to the Ativan and being postictal but she then started to have what sounded like agonal breathing. From there further discussion was had with the patient's daughter who is at bedside and pow er of trade mark attorney as well as the patient's family via Dyn who all live in the [facility]. I asked them what further interventions they Would like to pursue as the patient's hemoglobin was dropping pretty significantly pretty quickly and her blood pressure was also starting to drop pretty quickly as well. Patient's daughter as well as additional family members including her son and her grandch josiane are on the phone who said that they would always like to decide together as a family to no longer pursue medical intervention at this time. They understand that the mother's condition is imminent and they do not want her to continue to under go medical intervention understand that their mother will most likely be dying very soon. Patient's daughter as well as granddaughter are asking for all medical intervention to stop and are asking to just keep their mother and grandmother comfortable at this point in time and would like to pursue comfort care measures only and they understand that this means hospice." I was called to admit patient for end of life I spoke with patients daughter via televideo, daughter initially interested in taking her home but then concerned that what is she wakes up and start bleeding again, I told thedaughter that morning colleagues can try to arrange for home hospice, if she survives the night They will discuss with other family member and will let us know They are aware that patient is critically ill and now thas she on end of life, we will not do any blood draws ro invsavie test instead we will focus on helping her comfortably - CONSULTS | PROCEDURES Consultations: Dr Guerin by ED MD who recommended transfer for advanced care - HOSPITAL COURSE Hospital Course: 83-year-old female who presented to the ER with a recent diagnosis of autoimmune hepatitis after a syncopal episode. Collapsed at home and appeared to have blood coming from her mouth as well as her nose she presented to the emergency department via 911 with ongoing hematemesis. On arrival in the emergency department patient made it clear that she did want not want any resuscitative attempts. Was hemodynamically stable on arrival to the emergency department. Had a head CT which was negative for any intracranial bleed CT abdomen pelvis showed a cirrhotic liver with a large amount of ascites,, cholelithiasis with pericholecystic fluid, diverticulosis, hiatal hernia and small esophageal varices. Several hours into emergency department course patient had some seizure-like act ivity and was given Ativan her hemoglobin at that point it dropped to 6 and she was transfused emergently. Decision was made that the patient would not undergo any additional medical intervention and she was admitted to hospitalist service for end-of-life care. The decision was made that should she survive the night we would arrange for home hospice care. Patient did not have any additional seizure activities she was transferred to the floor where she peacefully at 0855 with family at her side. - ALLERGIES Allergies/Adverse Reactions: Allergies Allergy/AdvReac Type Severity Reaction Status Date / Time No Known Drug Allergies Allergy Verified 01/17/24 18:10 - MEDICATIONS Home Medications: Ambulatory Orders Medication Instructions Recorded Confirmed Losartan Potassium 100 mg PO DAILY 03/28/23 01/17/24 Furosemide [Lasix] 20 mg PO DAILY 01/17/24 01/17/24 Spironolactone [Aldactone] 50 mg PO DAILY 01/17/24 01/17/24 predniSONE [Prednisone] 10 mg PO DAILY 01/17/24 01/17/24 - PHYSICAL EXAM AT DISCHARGE General Appearance: positive: Other (Patient is ) - LABS Result Diagrams: 01/17/24 22:59 01/17/24 18:21 - DIAGNOSTIC IMAGING Diagnostic Imaging Results: Final report reviewed Diagnostic Imaging Results Comments: CT A/P No evidence of acute traumatic injury Cirrhotic liver with large amount of ascites Cholelithiasis with mild circumferential wall thickening and possible pericholecystic stranding. Mild circumferential wall thickening of diffusely scattered small bowel loops likely related to ascites diverticulosis of the colon without diverticulitis small hiatal hernia with small esophageal varices. CT head without acute intracranial pathology CT C-spine degenerative change without acute fracture or traumatic subluxation - TIME SPENT Time Spent in Discharge (Minutes): 25
== END 2024-01-18 08:58 | disposition expired | DRG 432 ==
LOC: EDUNIT# → ED 17:54 → MS2 01-18 01:54
PROVIDERS: ADMIT Internal Medicine; ATTEND Physician Assistant Medical
DX: I85.01 Esophageal varices with bleeding (principal); G93.40 Encephalopathy, unspecified; K74.60 Unspecified cirrhosis of liver; I85.11 Secondary esophageal varices with bleeding; D62 Acute posthemorrhagic anemia; E87.1 Hypo-osmolality and hyponatremia; R18.8 Other ascites; E72.4 Disorders of ornithine metabolism; K75.4 Autoimmune hepatitis; R55 Syncope and collapse; E87.5 Hyperkalemia; I10 Essential (primary) hypertension; K80.20 Calculus of gallbladder without cholecystitis without obstruction; K44.9 Diaphragmatic hernia without obstruction or gangrene; K57.30 Diverticulosis of large intestine without perforation or abscess without bleeding; Z51.5 Encounter for palliative care; Z66 Do not resuscitate; Z91.81 History of falling; R56.9 Unspecified convulsions
CPT/HCPCS: 36415; 51702; 70450; 72125; 74177; 80053; 81003; 82140; 83690; 85014; 85018; 85025; 85610; 86850; 86900; 86901; 86920; 93005; 96361; 96374; 96375; 96376; 99285; J2060; Q9967; 81001; 87086